=== PATIENT | male | born 1935 | race Caucasian/White ===

== ENCOUNTER 2018-04-11 18:25 | Emergency (ER) | payer MEDICARE, OTHER ==
[2018-04-11 19:14] LABS: Basophils % (A) 1 %; Eosinophils # (A) 0.1 k/uL (0-0.7); Eosinophils % (A) 1 %; HCT 40.5 % (39.0-53.0); HGB 13.6 gm/dL (13.0-17.5); Lymphocytes # (A) 1.5 k/uL (1.0-4.8); Lymphocytes % (A) 16 %; MCH 30.5 pg (25.0-35.0); MCHC 33.5 g/dL (31.0-37.0); MCV 90.9 fL (80.0-100.0); Mean Platelet Volume 7.3; Monocytes # (A) 0.6 k/uL (0-1.0); Monocytes % (A) 7 %; Neutrophils # (A) 6.9 k/uL (1.3-7.7); Neutrophils % (A) 74 %; Platelet Count 276 k/uL (150-450); RBC 4.46 m/uL (4.30-5.90); RDW 12.6 % (11.5-15.5); WBC 9.3 k/uL (3.8-10.6)
[2018-04-11 19:28] LABS: Albumin 4.4 g/dL (3.5-5.0); Calcium 9.4 mg/dL (8.4-10.2); Potassium 4.3 mmol/L (3.5-5.1); Total Bilirubin 0.7 mg/dL (0.2-1.3); Total Protein 7.1 g/dL (6.3-8.2)
[2018-04-11 19:33] LABS: Prothrombin Time 10.1 sec (9.0-12.0)
[2018-04-11 19:33] LABS: Appearance,Urine Clear (Clear); Bilirubin,Urine Negative (Negative); Blood,Urine Negative (Negative); Color,Urine Yellow; Glucose,Urine (UA) Negative (Negative); Ketones,Urine Negative (Negative); Leukocyte Esterase,Urine Negative (Negative); Nitrite,Urine Negative (Negative); PH, Urine 6.5 (5.0-8.0); Protein,Urine Negative (Negative); Specific Gravity,Urine 1.016 (1.001-1.035)
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
[2018-04-11 19:53] LABS: Creatine Kinase 105 U/L (55-170)
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
[2018-04-11 20:07] LABS: Troponin I <0.012 ng/mL (0.000-0.034)
[2018-04-11 20:12] LABS: Creatine Kinase MB 2.7 ng/mL (0.0-2.4)
[2018-04-11 20:33] VITALS: BP 150/67; PULSE 72; RESP 18; TEMP 97.1
== END 2018-04-11 20:58 | disposition home or self-care (01) ==
LOC: EC 18:25
DX: S50.11XA Contusion of right forearm, initial encounter (principal); R07.89 Other chest pain; E78.5 Hyperlipidemia, unspecified; I10 Essential (primary) hypertension; Z95.5 Presence of coronary angioplasty implant and graft; Z79.82 Long term (current) use of aspirin; Z79.899 Other long term (current) drug therapy; V43.52XA Car driver injured in collision with other type car in traffic accident, initial encounter; Y92.411 Interstate highway as the place of occurrence of the external cause
CPT/HCPCS: 36415; 71046; 72170; 80053; 81003; 82550; 82553; 84484; 85025; 85610; 85730; 86850; 86900; 86901; 93005; 99284

== ENCOUNTER → 2018-04-24 | Outpatient (CLI) | payer MEDICARE, OTHER ==
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
== END | disposition home or self-care (01) ==
LOC: RADCTMAIN 18:39
PROVIDERS: ATTEND Family Medicine
DX: S20.211A Contusion of right front wall of thorax, initial encounter (principal)
CPT/HCPCS: 71250

== ENCOUNTER 2018-07-31 20:27 | Emergency (ER) | payer MEDICARE, OTHER ==
[2018-07-31] MEDS ORDERED: SODIUM CHLORIDE 0.9% 1,000 ML IV STA (21:03)
[2018-07-31] MEDS ORDERED: FAMOTIDINE 20 MG/2 ML VIAL IV STA (21:04)
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
--- NOTE | 2018-07-31 21:46 | XR ---
EXAMINATION TYPE: XR KUB DATE OF EXAM: 07/31/2018 COMPARISON: NONE HISTORY: Nausea TECHNIQUE: 2 views FINDINGS: There is no sign of intestinal obstruction or pneumoperitoneum. Fecal pattern is normal. Sera ng bases are clear. There are no pathologic calcifications over the kidneys. IMPRESSION: Nonacute abdomen.
[2018-07-31 22:01] LABS: Appearance,Urine Clear (Clear); Bilirubin,Urine Negative (Negative); Blood,Urine Negative (Negative); Color,Urine Colorless; Glucose,Urine (UA) Negative (Negative); Ketones,Urine Negative (Negative); Leukocyte Esterase,Urine Negative (Negative); Nitrite,Urine Negative (Negative); Protein,Urine Negative (Negative); Specific Gravity,Urine 1.005 (1.001-1.035); Urobilinogen,Urine <2.0 mg/dL (<2.0)
[2018-07-31 22:03] LABS: Basophils % (A) 0 %; Eosinophils # (A) 0.1 k/uL (0-0.7); Eosinophils % (A) 1 %; HCT 39.3 % (39.0-53.0); HGB 13.5 gm/dL (13.0-17.5); Lymphocytes # (A) 1.3 k/uL (1.0-4.8); Lymphocytes % (A) 26 %; MCH 31.7 pg (25.0-35.0); MCHC 34.3 g/dL (31.0-37.0); MCV 92.3 fL (80.0-100.0); Mean Platelet Volume 7.6; Monocytes # (A) 0.5 k/uL (0-1.0); Monocytes % (A) 10 %; Neutrophils # (A) 2.9 k/uL (1.3-7.7); Neutrophils % (A) 59 %; Platelet Count 219 k/uL (150-450); RBC 4.26 m/uL (4.30-5.90); RDW 12.4 % (11.5-15.5)
[2018-07-31 22:12] LABS: ALT 21 U/L (21-72); AST 24 U/L (17-59); Albumin 3.7 g/dL (3.5-5.0); Alkaline Phosphatase 51 U/L (38-126); Amylase 57 U/L (30-110); Anion Gap 8 mmol/L; Blood Urea Nitrogen 12 mg/dL (9-20); Calcium 9.1 mg/dL (8.4-10.2); Carbon Dioxide 29 mmol/L (22-30); Chloride 98 mmol/L (98-107); Glucose 91 mg/dL (74-99); Lipase 143 U/L (23-300); Potassium 4.4 mmol/L (3.5-5.1); Sodium 135 mmol/L (137-145); Total Bilirubin 0.7 mg/dL (0.2-1.3); Total Protein 6.7 g/dL (6.3-8.2)
[2018-07-31 22:18] LABS: INR 1.1 (<1.2); Prothrombin Time 10.3 sec (9.0-12.0)
[2018-07-31 22:30] LABS: Creatine Kinase MB 2.2 ng/mL (0.0-2.4); Troponin I <0.012 ng/mL (0.000-0.034)
[2018-07-31 22:43] LABS: Creatine Kinase 73 U/L (55-170)
[2018-08-01 00:15] VITALS: BP 149/65; PULSE 74; RESP 18; TEMP 98.3
== END 2018-07-31 23:57 | disposition home or self-care (01) ==
LOC: EC 20:27
DX: R10.13 Epigastric pain (principal); R11.2 Nausea with vomiting, unspecified; R19.7 Diarrhea, unspecified; E78.5 Hyperlipidemia, unspecified; I10 Essential (primary) hypertension; Z95.5 Presence of coronary angioplasty implant and graft; Z79.82 Long term (current) use of aspirin; Z79.899 Other long term (current) drug therapy; Z98.890 Other specified postprocedural states
CPT/HCPCS: 36415; 71046; 74018; 80053; 81003; 82150; 82550; 82553; 83690; 84484; 85025; 85610; 85730; 93005; 96361; 96374; 99284

== ENCOUNTER 2019-03-25 01:30 | Emergency (ER) | payer MEDICARE ==
[2019-03-25 01:45] VITALS: TEMP 98.1
[2019-03-25] MEDS ORDERED: SODIUM CHLORIDE 0.9% 500 ML 500 ML IV STA (02:01)
--- NOTE | 2019-03-25 02:42 | XR ---
EXAM: XR Chest, 2 Views CLINICAL HISTORY: ITS.REASON XR Reason: Dizziness; Chest pain TECHNIQUE: Frontal and lateral views of the chest. COMPARISON: No relevant prior studies available. FINDINGS: Lungs: Unremarkable. No consolidation. Pleural space: Unremarkable. No pneumothorax. Heart: No suspicious enlargement. Mediastinum: Unremarkable. Bones/joints: No acute fracture. IMPRESSION: No acute findings.
--- NOTE | 2019-03-25 02:42 | XR ---
EXAM: XR Abdomen, 1 View CLINICAL HISTORY: ITS.REASON XR Reason: Pain TECHNIQUE: Frontal supine view of the abdomen/pelvis. COMPARISON: No relevant prior studies available. FINDINGS: Gastrointestinal tract: Unremarkable. No dilation. Bones/joints: Unremarkable. IMPRESSION: Normal abdominal x-ray.
[2019-03-25 02:51] LABS: Basophils % (A) 0 %; Eosinophils # (A) 0.1 k/uL (0-0.7); Eosinophils % (A) 1 %; HCT 38.9 % (39.0-53.0); Lymphocytes # (A) 1.2 k/uL (1.0-4.8); Lymphocytes % (A) 19 %; MCH 30.4 pg (25.0-35.0); MCHC 33.5 g/dL (31.0-37.0); MCV 90.7 fL (80.0-100.0); Monocytes # (A) 0.5 k/uL (0-1.0); Monocytes % (A) 8 %; Neutrophils # (A) 4.1 k/uL (1.3-7.7); Neutrophils % (A) 69 %; Platelet Count 215 k/uL (150-450); RBC 4.29 m/uL (4.30-5.90)
[2019-03-25 03:08] LABS: Appearance,Urine Clear (Clear); Bilirubin,Urine Negative (Negative); Blood,Urine Trace (Negative); Color,Urine Light Yellow; Glucose,Urine (UA) Negative (Negative); Ketones,Urine Negative (Negative); Leukocyte Esterase,Urine Negative (Negative); Mucus,Urine Rare /hpf; Nitrite,Urine Negative (Negative); Protein,Urine Negative (Negative); RBC,Urine 3 /hpf (0-5); Specific Gravity,Urine 1.009 (1.001-1.035); Urobilinogen,Urine <2.0 mg/dL (<2.0)
[2019-03-25 03:14] LABS: ALT 13 U/L (21-72); AST 25 U/L (17-59); Albumin 4.1 g/dL (3.5-5.0); Alkaline Phosphatase 55 U/L (38-126); Amylase 50 U/L (30-110); Anion Gap 9 mmol/L; Blood Urea Nitrogen 12 mg/dL (9-20); Calcium 9.2 mg/dL (8.4-10.2); Carbon Dioxide 25 mmol/L (22-30); Chloride 98 mmol/L (98-107); Glucose 102 mg/dL (74-99); Lipase 94 U/L (23-300); Sodium 132 mmol/L (137-145); Total Protein 7.1 g/dL (6.3-8.2)
[2019-03-25 03:28] LABS: Potassium 4.2 mmol/L (3.5-5.1)
[2019-03-25 03:44] VITALS: BP 134/80; PULSE 57; RESP 11
--- NOTE | 2019-03-25 03:59 | ED ---
General Adult HPI - General Source: EMS Mode of arrival: EMS Limitations: no limitations <Alondra Ken - Last Filed: 03/25/19 04:04> <Sadia Robison - Last Filed: 03/25/19 22:20> - General Chief complaint: Dizziness Stated complaint: dizziness - History of Present Illness Initial comments: 83-year-old male patient presents to the emergency department today for evaluation of dizziness and abdominal bloating. Patient states he started around noon with abdominal bloating. Patient states he thought he was constipated so he did take a laxative and had a small bowel movement. Patient states he thought he was constipated so he drank some prune juice and had another bowel movement. Patient states he did not change his symptoms. Patient denies any nausea or vomiting. Patient states that he felt his blood pressure was rising and he felt some mild dizziness. Patient states is worsened when he stood up. Patient denies any headache or blurred vision. Denies any numbness, tingling, weakness to his extremities. Patient states he is eating well throughout the day. Denies any fever or chills. Patient denies any recent rash, shortness breath, chest pain, back pain, numbness, tingling, dizziness, weakness, hematuria, dysuria, urinary urgency, urinary frequency, or any other complaints. (Alondra Ken) - Related Data Home Medications Medication Instructions Recorded Confirmed Aspirin 81 mg PO DAILY 03/27/15 04/11/18 Famotidine [Pepcid] 20 mg PO BID 03/27/15 04/11/18 Potassium Chloride [K-Tab ER] 20 meq PO DAILY 03/27/15 04/11/18 Simvastatin [Zocor] 40 mg PO HS 03/27/15 04/11/18 diphenhydrAMINE [Benadryl] 50 mg PO DAILY 03/27/15 04/11/18 Losartan Potassium [Cozaar] 25 mg PO DAILY 04/11/18 04/11/18 Metoprolol Tartrate [Lopressor] 25 mg PO BID 04/11/18 04/11/18 Allergies Allergy/AdvReac Type Severity Reaction Status Date / Time No Known Allergies Allergy Verified 03/25/19 01:39 Review of Systems ROS Other: All systems not noted in ROS Statement are negative. <Alondra Ken - Last Filed: 03/25/19 04:04> ROS Other: All systems not noted in ROS Statement are negative. <Sadia Robison P - Last Filed: 03/25/19 22:20> ROS Statement: Those systems with pertinent positive or pertinent negative responses have been documented in the HPI. Past Medical History Past Medical History: Hyperlipidemia, Hypertension Additional Past Medical History / Comment(s): Broken sternum April 11, 2018 History of Any Multi-Drug Resistant Organisms: None Reported Past Surgical History: Heart Catheterization With Stent, Hernia Repair Past Psychological History: No Psychological Hx Reported Smoking Status: Never smoker Past Alcohol Use History: None Reported Past Drug Use History: None Reported <Alondra Ken M - Last Filed: 03/25/19 04:04> General Exam Limitations: no limitations General appearance: alert, in no apparent distress, other (Physical well- developed, well-nourished elderly male patient in no acute distress. Vital signs upon presentation are temperature 98.1F, pulse 72, respirations 20, blood pressure 161/86, pulse ox 99% on room air.) Eye exam: Present: normal appearance, PERRL, EOMI. Absent: scleral icterus, conjunctival injection, periorbital swelling ENT exam: Present: normal exam, normal oropharynx, mucous membranes moist Respiratory exam: Present: normal lung sounds bilaterally. Absent: respiratory distress, wheezes, rales, rhonchi, stridor Cardiovascular Exam: Present: regular rate, normal rhythm, normal heart sounds. Absent: systolic murmur, diastolic murmur, rubs, gallop, clicks GI/Abdominal exam: Present: soft, normal bowel sounds. Absent: distended, tenderness, guarding, rebound, rigid Neurological exam: Present: alert, oriented X3, CN II-XII intact, other (Strength in all 4 extremities is 5/5.) Psychiatric exam: Present: normal affect, normal mood Skin exam: Present: warm, dry, intact, normal color. Absent: rash <Alondra Ken M - Last Filed: 03/25/19 04:04> Course Vital Signs 03/25/19 03/25/19 03/25/19 01:39 01:43 01:50 Temperature 98.1 F Pulse Rate 72 Respiratory 20 Rate Blood Pressure 161/86 161/86 O2 Sat by Pulse 99 96 Oximetry 03/25/19 03/25/19 03/25/19 02:00 02:20 02:30 Temperature Pulse Rate 68 Respiratory 13 Rate Blood Pressure 161/86 166/82 166/82 O2 Sat by Pulse 98 Oximetry 03/25/19 03/25/19 03/25/19 02:40 02:50 03:00 Temperature Pulse Rate 64 Respiratory 35 H Rate Blood Pressure 166/82 166/82 166/82 O2 Sat by Pulse 97 Oximetry 03/25/19 03/25/19 03/25/19 03:10 03:20 03:30 Temperature Pulse Rate 62 64 57 L Respiratory 12 24 11 L Rate Blood Pressure 155/77 155/77 155/77 O2 Sat by Pulse 97 97 Oximetry 03/25/19 03:40 Temperature Pulse Rate Respiratory Rate Blood Pressure 134/80 O2 Sat by Pulse Oximetry EKG Findings - EKG Comments: EKG Findings:: EKG obtained at 0222 shows sinus bradycardia with a ventricular rate of 59, WV interval 166, QRS duration 94, QT 428, QTC 423. No evidence of ST elevation or depression. <Alondra Ken - Last Filed: 03/25/19 04:04> Medical Decision Making - Lab Data Result diagrams: 03/25/19 02:10 03/25/19 02:10 - Radiology Data Radiology results: report reviewed, image reviewed <Alondra Ken - Last Filed: 03/25/19 04:04> - Lab Data Result diagrams: 03/25/19 02:10 03/25/19 02:10 <Sadia Robison - Last Filed: 03/25/19 22:20> - Medical Decision Making 83-year-old male patient presents to the emergency department today for evaluation of abdominal bloating and dizziness. Physical examination did reveal a soft nontender abdomen. He is neurologically intact with no focal deficits. EKG shows sinus bradycardia with no ST elevation or depression. Rates in the emergency department between 59 and 69 bpm. Labs reviewed and were unremarkable. Troponin negative. Chest x-ray showed no acute cardio pulmonary process. Abdominal x-ray is unremarkable. Upon reevaluation patient states symptoms have resolved. He does feel comfortable being discharged home at this time. He is instructed to follow-up with his primary care physician for recheck in 1-2 days. Return parameters were discussed in detail. He verbalizes understanding and agrees with this plan. (Alondra Ken) I was available for consultation in the emergency department. The history and physical exam were done by the midlevel provider. I was consulted for this patient's care. I reviewed the case with the midlevel provider and based on their presentation of the patient, I agree with the assessment, medical decision making and plan of care as documented. Chart was dictated using [employer] dictation software. Attempts were made to correct any dictation errors however some typographical errors may persist. (Sadia Robison) - Lab Data Lab Results 03/25/19 03/25/19 03/25/19 Range/Units 02:10 02:10 02:10 WBC 6.0 (3.8-10.6) k/uL RBC 4.29 L (4.30-5.90) m/uL Hgb 13.0 (13.0-17.5) gm/dL Hct 38.9 L (39.0-53.0) % MCV 90.7 (80.0-100.0) fL MCH 30.4 (25.0-35.0) pg MCHC 33.5 (31.0-37.0) g/dL RDW 13.0 (11.5-15.5) % Plt Count 215 (150-450) k/uL Neutrophils % 69 % Lymphocytes % 19 % Monocytes % 8 % Eosinophils % 1 % Basophils % 0 % Neutrophils # 4.1 (1.3-7.7) k/uL Lymphocytes # 1.2 (1.0-4.8) k/uL Monocytes # 0.5 (0-1.0) k/uL Eosinophils # 0.1 (0-0.7) k/uL Basophils # 0.0 (0-0.2) k/uL PT 11.0 (9.0-12.0) sec INR 1.0 (<1.2) Sodium 132 L (137-145) mmol/L Potassium 4.2 (3.5-5.1) mmol/L Chloride 98 (98-107) mmol/L Carbon Dioxide 25 (22-30) mmol/L Anion Gap 9 mmol/L BUN 12 (9-20) mg/dL Creatinine 0.72 (0.66-1.25) mg/dL Est GFR (CKD-EPI)AfAm >90 (>60 ml/min/1.73 sqM) Est GFR (CKD-EPI)NonAf 86 (>60 ml/min/1.73 sqM) Glucose 102 H (74-99) mg/dL Calcium 9.2 (8.4-10.2) mg/dL Total Bilirubin 1.0 (0.2-1.3) mg/dL AST 25 (17-59) U/L ALT 13 L (21-72) U/L Alkaline Phosphatase 55 (38-126) U/L Troponin I (0.000-0.034) ng/mL Total Protein 7.1 (6.3-8.2) g/dL Albumin 4.1 (3.5-5.0) g/dL Amylase 50 (30-110) U/L Lipase 94 (23-300) U/L Urine Color Urine Appearance (Clear) Urine pH (5.0-8.0) Ur Specific [place] (1.001-1.035) Urine Protein (Negative) Urine Glucose (UA) (Negative) Urine Ketones (Negative) Urine Blood (Negative) Urine Nitrite (Negative) Urine Bilirubin (Negative) Urine Urobilinogen (<2.0) mg/dL Ur Leukocyte Esterase (Negative) Urine RBC (0-5) /hpf Urine Mucus (None) /hpf 03/25/19 03/25/19 Range/Units 02:10 02:10 WBC (3.8-10.6) k/uL RBC (4.30-5.90) m/uL Hgb (13.0-17.5) gm/dL Hct (39.0-53.0) % MCV (80.0-100.0) fL MCH (25.0-35.0) pg MCHC (31.0-37.0) g/dL RDW (11.5-15.5) % Plt Count (150-450) k/uL Neutrophils % % Lymphocytes % % Monocytes % % Eosinophils % % Basophils % % Neutrophils # (1.3-7.7) k/uL Lymphocytes # (1.0-4.8) k/uL Monocytes # (0-1.0) k/uL Eosinophils # (0-0.7) k/uL Basophils # (0-0.2) k/uL PT (9.0-12.0) sec INR (<1.2) Sodium (137-145) mmol/L Potassium (3.5-5.1) mmol/L Chloride (98-107) mmol/L Carbon Dioxide (22-30) mmol/L Anion Gap mmol/L BUN (9-20) mg/dL Creatinine (0.66-1.25) mg/dL Est GFR (CKD-EPI)AfAm (>60 ml/min/1.73 sqM) Est GFR (CKD-EPI)NonAf (>60 ml/min/1.73 sqM) Glucose (74-99) mg/dL Calcium (8.4-10.2) mg/dL Total Bilirubin (0.2-1.3) mg/dL AST (17-59) U/L ALT (21-72) U/L Alkaline Phosphatase (38-126) U/L Troponin I <0.012 (0.000-0.034) ng/mL Total Protein (6.3-8.2) g/dL Albumin (3.5-5.0) g/dL Amylase (30-110) U/L Lipase (23-300) U/L Urine Color Light Yellow Urine Appearance Clear (Clear) Urine pH 7.0 (5.0-8.0) Ur Specific [place] 1.009 (1.001-1.035) Urine Protein Negative (Negative) Urine Glucose (UA) Negative (Negative) Urine Ketones Negative (Negative) Urine Blood Trace H (Negative) Urine Nitrite Negative (Negative) Urine Bilirubin Negative (Negative) Urine Urobilinogen <2.0 (<2.0) mg/dL Ur Leukocyte Esterase Negative (Negative) Urine RBC 3 (0-5) /hpf Urine Mucus Rare H (None) /hpf - Radiology Data One view x-ray of the abdomen is obtained. Report was reviewed in its entirety. Impression by Dr. Dennis shows normal abdominal x-ray. Two-view x-ray of the chest is obtained. Report reviewed in its entirety. Impression by Dr. Dennis shows no acute findings. (Alondra Ken) Disposition Is patient prescribed a controlled substance at d/c from ED?: No Time of Disposition: 03:59 <Alondra Ken - Last Filed: 03/25/19 04:04> <Sadia Robison - Last Filed: 03/25/19 22:20> Clinical Impression: Dizziness, Abdominal distention Disposition: HOME SELF-CARE Condition: Good Instructions (If sedation given, give patient instructions): Gas and Bloating (ED), Dizziness (ED) Additional Instructions: Follow-up with her primary care physician for recheck this week. Return to the emergency department immediately for any new, worsening, or concerning symptoms. Referrals: Arleen Estevez DO [Primary Care Provider] - 1-2 days
== END 2019-03-25 04:10 | disposition home or self-care (01) ==
LOC: EC 01:30
DX: R42 Dizziness and giddiness (principal); R14.0 Abdominal distension (gaseous); R00.1 Bradycardia, unspecified; E78.5 Hyperlipidemia, unspecified; I10 Essential (primary) hypertension; Z95.5 Presence of coronary angioplasty implant and graft; Z79.82 Long term (current) use of aspirin; Z79.899 Other long term (current) drug therapy
CPT/HCPCS: 36415; 71046; 74018; 80053; 81001; 82150; 83690; 84484; 85025; 85610; 93005; 96360; 99285

== ENCOUNTER 2019-04-27 19:33 | Emergency (ER) | payer MEDICARE ==
[2019-04-27] MEDS ORDERED: SODIUM CHLORIDE 0.9% 500 ML 500 ML IV STA (20:03)
[2019-04-27 20:34] VITALS: RESP 18
[2019-04-27 20:45] LABS: Basophils % (A) 1 %; Eosinophils # (A) 0.1 k/uL (0-0.7); Eosinophils % (A) 1 %; HGB 13.5 gm/dL (13.0-17.5); Lymphocytes # (A) 1.1 k/uL (1.0-4.8); Lymphocytes % (A) 20 %; MCH 30.3 pg (25.0-35.0); MCHC 33.8 g/dL (31.0-37.0); MCV 89.7 fL (80.0-100.0); Mean Platelet Volume 7.2; Monocytes # (A) 0.3 k/uL (0-1.0); Monocytes % (A) 6 %; Neutrophils # (A) 3.8 k/uL (1.3-7.7); Neutrophils % (A) 69 %; Platelet Count 255 k/uL (150-450); RBC 4.46 m/uL (4.30-5.90); RDW 12.2 % (11.5-15.5); WBC 5.6 k/uL (3.8-10.6)
[2019-04-27 20:53] LABS: Partial Thromboplastin Time 27.2 sec (22.0-30.0); Prothrombin Time 10.3 sec (9.0-12.0)
[2019-04-27 20:54] LABS: ALT 20 U/L (21-72); AST 22 U/L (17-59); African American GFR (CKD) >90 (>60 ml/min/1.73 sqM); Albumin 4.2 g/dL (3.5-5.0); Alkaline Phosphatase 73 U/L (38-126); Amylase 55 U/L (30-110); Anion Gap 11 mmol/L; Blood Urea Nitrogen 10 mg/dL (9-20); Calcium 9.6 mg/dL (8.4-10.2); Carbon Dioxide 25 mmol/L (22-30); Chloride 94 mmol/L (98-107); Glucose 109 mg/dL (74-99); Lipase 85 U/L (23-300); Potassium 4.5 mmol/L (3.5-5.1); Sodium 130 mmol/L (137-145); Total Bilirubin 0.8 mg/dL (0.2-1.3); Total Protein 7.2 g/dL (6.3-8.2)
--- NOTE | 2019-04-27 21:23 | CT ---
EXAMINATION TYPE: CT abdomen pelvis w con DATE OF EXAM: 04/27/2019 COMPARISON: None HISTORY: Abdominal pain. CT DLP: 860.4 mGycm Automated exposure control for dose reduction was used. TECHNIQUE: Helical acquisition of images was performed from the lung bases through the pelvis. CONTRAST: Performed without Oral Contrast and with IV Contrast, patient injected with 100ml mL of Isovue 300. FINDINGS: Lung bases are clear of consolidation. There is no pleural effusion. Heart size is normal. There are small hiatal hernia. Liver shows no focal defect. Gallbladder appears normal. Spleen appear s normal. There is no pancreatic mass. There is no adrenal mass. Kidneys show satisfactory contrast opacification. There is no hydronephrosi s. Abdominal aorta is atheromatous. There is no retroperitoneal adenopathy. There are numerous divert icula in the sigmoid colon. There are numerous diverticula in the remainder of the colon. Bladder dis tends smoothly. There is no free fluid in the pelvis. There is right inguinal hernia that appears to contain fluid. There is no free fluid in the pelvis. There is no definite mesenteric edema. There are multiple small mesenteric lymph nodes. These measure up to 8 mm. There is no ascites or free air. The appendix appe ars normal. 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 There i s moderate L5-S1 disc space narrowing. There is no lumbar compression fracture. Bony pelvis is intact . IMPRESSION: HIATAL HERNIA. ATHEROSCLEROTIC VASCULAR DISEASE. NORMAL APPENDIX. MODERATE COLONIC DIVERTICULOSIS WITHOUT DIVERTICULITIS. There is some small bowel mesenteric lymphadenopathy of uncertain significance.
--- NOTE | 2019-04-27 21:47 | ED ---
Abdominal Pain HPI - General Source: patient Mode of arrival: ambulatory Limitations: no limitations <Alondra Ken - Last Filed: 04/27/19 23:37> <Sadia Robison - Last Filed: 04/28/19 03:15> - General Chief Complaint: Abdominal Pain Stated Complaint: Abd pain Time Seen by Provider: 04/27/19 19:47 - History of Present Illness Initial Comments: 83-year-old male patient presents to the emergency department today for evaluation of upper abdominal discomfort and bloating. The patient states this started this morning and has worsened throughout the day. Patient states that he is following his usual diet with no new foods. States he has been having increase in acid reflux symptoms. He does take Pepcid twice daily. Denies any radiation of the pain through to his back. Denies any fever or chills with this. Patient states he was feeling a little "woozy". States he felt like his blood pressure was elevated. Denies any chest pain or shortness of breath. Denies any weakness, numbness, or tingling to his extremities. Denies any headache, blurred vision, double vision. Patient denies any recent rash, fever, chills, nausea, vomiting, diarrhea, constipation, back pain, hematuria, dysuria, urinary urgency, urinary frequency, or any other complaints. (Alondra Ken) - Related Data Home Medications Medication Instructions Recorded Confirmed Aspirin 81 mg PO DAILY 03/27/15 04/27/19 Famotidine [Pepcid] 20 mg PO BID 03/27/15 04/27/19 Simvastatin [Zocor] 40 mg PO HS 03/27/15 04/27/19 diphenhydrAMINE [Benadryl] 50 mg PO DAILY 03/27/15 04/27/19 Losartan Potassium [Cozaar] 25 mg PO DAILY 04/11/18 04/27/19 Metoprolol Tartrate [Lopressor] 25 mg PO BID 04/11/18 04/27/19 Previous Rx's Medication Instructions Recorded Ranitidine HCl [Zantac] 150 mg PO HS #30 tab 04/27/19 Allergies Allergy/AdvReac Type Severity Reaction Status Date / Time No Known Allergies Allergy Verified 04/27/19 20:20 Review of Systems ROS Other: All systems not noted in ROS Statement are negative. <Alondra Ken - Last Filed: 04/27/19 23:37> ROS Other: All systems not noted in ROS Statement are negative. <RobisonSadia P - Last Filed: 04/28/19 03:15> ROS Statement: Those systems with pertinent positive or pertinent negative responses have been documented in the HPI. Past Medical History Past Medical History: Hyperlipidemia, Hypertension Additional Past Medical History / Comment(s): Broken sternum April 11, 2018 History of Any Multi-Drug Resistant Organisms: None Reported Past Surgical History: Heart Catheterization With Stent, Hernia Repair Past Psychological History: No Psychological Hx Reported Smoking Status: Never smoker Past Alcohol Use History: None Reported Past Drug Use History: None Reported <Alondra Ken M - Last Filed: 04/27/19 23:37> General Exam Limitations: no limitations General appearance: alert, in no apparent distress, other (Physical well- developed, well-nourished elderly male patient in no acute distress. Vital signs upon presentation are temperature 97.6F, pulse 66, respirations 20, blood pressure 149/83, pulse ox 96% on room air.) Eye exam: Present: normal appearance, PERRL, EOMI. Absent: scleral icterus, conjunctival injection, periorbital swelling ENT exam: Present: normal exam, normal oropharynx, mucous membranes moist Respiratory exam: Present: normal lung sounds bilaterally. Absent: respiratory distress, wheezes, rales, rhonchi, stridor Cardiovascular Exam: Present: regular rate, normal rhythm, normal heart sounds. Absent: systolic murmur, diastolic murmur, rubs, gallop, clicks GI/Abdominal exam: Present: soft, tenderness (Mild midepigastric), normal bowel sounds. Absent: distended, guarding, rebound, rigid Neurological exam: Present: alert, oriented X3, CN II-XII intact Psychiatric exam: Present: normal affect, normal mood Skin exam: Present: warm, dry, intact, normal color. Absent: rash <Alondra Ken M - Last Filed: 04/27/19 23:37> Course Vital Signs 04/27/19 04/27/19 04/27/19 19:41 20:32 20:52 Temperature 97.6 F Pulse Rate 66 63 60 Respiratory 20 18 18 Rate Blood Pressure 149/83 176/96 159/84 O2 Sat by Pulse 96 96 96 Oximetry 06/23/19 06/23/19 06/23/19 21:56 23:06 23:41 Temperature 98 F 98 F 98 F Pulse Rate 64 64 67 Respiratory 18 18 18 Rate Blood Pressure 143/75 145/88 136/80 O2 Sat by Pulse 98 98 Oximetry Medical Decision Making - Lab Data Result diagrams: 04/27/19 20:32 04/27/19 20:32 - EKG Data -: EKG Interpreted by Me - Radiology Data Radiology results: report reviewed, image reviewed <Alondra Ken - Last Filed: 04/27/19 23:37> - Lab Data Result diagrams: 04/27/19 20:32 04/27/19 20:32 <Sadia Robison - Last Filed: 04/28/19 03:15> - Medical Decision Making 83-year-old male patient presents the emergency department today for evaluation of upper abdominal bloating and discomfort. Patient is also reporting feeling "woozy". Denies any room spinning or near-syncope. Physical examination reveals some midepigastric tenderness. He is neurologically intact with no focal deficits. Labs reviewed and did reveal decreased sodium at 130. Remainder of labs are unremarkable. No urinary tract infection. CT abdomen and pelvis was obtained and did show evidence of lymphadenopathy surrounding the small bowel and colonic diverticulosis. Patient was given a GI cocktail. Upon reevaluation states that symptoms are improved. He will be discharged home at this time to follow-up with his primary care physician for recheck as soon as possible. He'll be switched from Pepcid to Zantac. He is instructed to discuss referral for upper GI endoscopy. Return parameters were discussed in detail. He verbalizes understanding and agrees this plan. (Alondra Ken) I was available for consultation in the emergency department. The history and physical exam were done by the midlevel provider. I was consulted for this patient's care. I reviewed the case with the midlevel provider and based on the ir presentation of the patient, I agree with the assessment, medical decision making and plan of care as documented. Chart was dictated using [employer] dictation software. Attempts were made to correct any dictation errors however some typographical errors may persist. (Sadia Robison) - Lab Data Lab Results 04/27/19 04/27/19 04/27/19 Range/Units 20:32 20:32 20:32 WBC 5.6 (3.8-10.6) k/uL RBC 4.46 (4.30-5.90) m/uL Hgb 13.5 (13.0-17.5) gm/dL Hct 40.0 (39.0-53.0) % MCV 89.7 (80.0-100.0) fL MCH 30.3 (25.0-35.0) pg MCHC 33.8 (31.0-37.0) g/dL RDW 12.2 (11.5-15.5) % Plt Count 255 (150-450) k/uL Neutrophils % 69 % Lymphocytes % 20 % Monocytes % 6 % Eosinophils % 1 % Basophils % 1 % Neutrophils # 3.8 (1.3-7.7) k/uL Lymphocytes # 1.1 (1.0-4.8) k/uL Monocytes # 0.3 (0-1.0) k/uL Eosinophils # 0.1 (0-0.7) k/uL Basophils # 0.0 (0-0.2) k/uL PT (9.0-12.0) sec INR (<1.2) APTT (22.0-30.0) sec Sodium 130 L (137-145) mmol/L Potassium 4.5 (3.5-5.1) mmol/L Chloride 94 L (98-107) mmol/L Carbon Dioxide 25 (22-30) mmol/L Anion Gap 11 mmol/L BUN 10 (9-20) mg/dL Creatinine 0.79 (0.66-1.25) mg/dL Est GFR (CKD-EPI)AfAm >90 (>60 ml/min/1.73 sqM) Est GFR (CKD-EPI)NonAf 83 (>60 ml/min/1.73 sqM) Glucose 109 H (74-99) mg/dL Plasma Lactic Acid Tee 1.1 (0.7-2.0) mmol/L Calcium 9.6 (8.4-10.2) mg/dL Total Bilirubin 0.8 (0.2-1.3) mg/dL AST 22 (17-59) U/L ALT 20 L (21-72) U/L Alkaline Phosphatase 73 (38-126) U/L Troponin I (0.000-0.034) ng/mL Total Protein 7.2 (6.3-8.2) g/dL Albumin 4.2 (3.5-5.0) g/dL Amylase 55 (30-110) U/L Lipase 85 (23-300) U/L Urine Color Urine Appearance (Clear) Urine pH (5.0-8.0) Ur Specific [place] (1.001-1.035) Urine Protein (Negative) Urine Glucose (UA) (Negative) Urine Ketones (Negative) Urine Blood (Negative) Urine Nitrite (Negative) Urine Bilirubin (Negative) Urine Urobilinogen (<2.0) mg/dL Ur Leukocyte Esterase (Negative) 04/27/19 04/27/19 04/27/19 Range/Units 20:32 20:32 21:30 WBC (3.8-10.6) k/uL RBC (4.30-5.90) m/uL Hgb (13.0-17.5) gm/dL Hct (39.0-53.0) % MCV (80.0-100.0) fL MCH (25.0-35.0) pg MCHC (31.0-37.0) g/dL RDW (11.5-15.5) % Plt Count (150-450) k/uL Neutrophils % % Lymphocytes % % Monocytes % % Eosinophils % % Basophils % % Neutrophils # (1.3-7.7) k/uL Lymphocytes # (1.0-4.8) k/uL Monocytes # (0-1.0) k/uL Eosinophils # (0-0.7) k/uL Basophils # (0-0.2) k/uL PT 10.3 (9.0-12.0) sec INR 1.0 (<1.2) APTT 27.2 (22.0-30.0) sec Sodium (137-145) mmol/L Potassium (3.5-5.1) mmol/L Chloride (98-107) mmol/L Carbon Dioxide (22-30) mmol/L Anion Gap mmol/L BUN (9-20) mg/dL Creatinine (0.66-1.25) mg/dL Est GFR (CKD-EPI)AfAm (>60 ml/min/1.73 sqM) Est GFR (CKD-EPI)NonAf (>60 ml/min/1.73 sqM) Glucose (74-99) mg/dL Plasma Lactic Acid Tee (0.7-2.0) mmol/L Calcium (8.4-10.2) mg/dL Total Bilirubin (0.2-1.3) mg/dL AST (17-59) U/L ALT (21-72) U/L Alkaline Phosphatase (38-126) U/L Troponin I <0.012 (0.000-0.034) ng/mL Total Protein (6.3-8.2) g/dL Albumin (3.5-5.0) g/dL Amylase (30-110) U/L Lipase (23-300) U/L Urine Color Light Yellow Urine Appearance Clear (Clear) Urine pH 7.0 (5.0-8.0) Ur Specific [place] 1.017 (1.001-1.035) Urine Protein Negative (Negative) Urine Glucose (UA) Negative (Negative) Urine Ketones Negative (Negative) Urine Blood Negative (Negative) Urine Nitrite Negative (Negative) Urine Bilirubin Negative (Negative) Urine Urobilinogen <2.0 (<2.0) mg/dL Ur Leukocyte Esterase Negative (Negative) - EKG Data EKG Comments: EKG obtained at 2045 shows normal sinus rhythm with a ventricular rate of 62, NE interval 158, QRS duration 86, QT 434, QTC 440. No evidence of ST elevation or depression (Alondra Ken) - Radiology Data CT abdomen and pelvis was obtained with contrast. Report was reviewed in its entirety. Impression by Dr. Swan shows hiatal hernia. Atherosclerotic vascular disease. Normal appendix. Moderate colonic diverticulosis without diverticulitis. There is some small bowel mesenteric lymphadenopathy of uncertain significance. (Alondra Ken) Disposition Is patient prescribed a controlled substance at d/c from ED?: No Time of Disposition: 22:25 <Alondra Ken - Last Filed: 04/27/19 23:37> <Sadia Robison - Last Filed: 04/28/19 03:15> Clinical Impression: Abdominal distention, Hyponatremia Disposition: HOME SELF-CARE Condition: Good Instructions (If sedation given, give patient instructions): Hyponatremia (ED), Gas and Bloating (ED) Additional Instructions: Follow-up with your primary care physician for recheck as soon as possible. Inform him of your low sodium level. Return to the emergency department immediately for any new, worsening, or concerning symptoms. Prescriptions: Ranitidine HCl [Zantac] 150 mg PO HS #30 tab Referrals: Arleen Estevez DO [Primary Care Provider] - 1-2 days
[2019-04-27 21:48] LABS: Appearance,Urine Clear (Clear); Bilirubin,Urine Negative (Negative); Blood,Urine Negative (Negative); Color,Urine Light Yellow; Glucose,Urine (UA) Negative (Negative); Ketones,Urine Negative (Negative); Leukocyte Esterase,Urine Negative (Negative); Nitrite,Urine Negative (Negative); Protein,Urine Negative (Negative); Specific Gravity,Urine 1.017 (1.001-1.035); Urobilinogen,Urine <2.0 mg/dL (<2.0)
[2019-04-27 21:58] VITALS: TEMP 98
[2019-04-27] MEDS ORDERED: MAG HYDROX/AL HYDROX/SIMETH 30 ML, HYOSCYAMINE ELIXIR 10 ML, CIMETIDINE HCL 300 MG, LID... PO STA ×4 (22:36)
[2019-04-27 23:43] VITALS: BP 136/80; PULSE 67
== END 2019-04-27 23:50 | disposition home or self-care (01) ==
LOC: EC 19:33
DX: R14.0 Abdominal distension (gaseous) (principal); E87.1 Hypo-osmolality and hyponatremia; R10.13 Epigastric pain; K57.30 Diverticulosis of large intestine without perforation or abscess without bleeding; R59.0 Localized enlarged lymph nodes; E78.5 Hyperlipidemia, unspecified; I10 Essential (primary) hypertension; Z79.82 Long term (current) use of aspirin; Z79.899 Other long term (current) drug therapy; Z95.5 Presence of coronary angioplasty implant and graft
CPT/HCPCS: 36415; 93005; 80053; 82150; 83605; 83690; 84484; 85025; 85610; 85730; 81003; 74177; 99284; 96360; Q9967

== ENCOUNTER 2019-05-13 09:00 | Day surgery (SDC) | payer MEDICARE ==
[2019-05-12 10:14] VITALS: BMI 25.0
[~2019-05-13 09:00] MED LIST: LACTATED RINGERS 1,000 ML IV SCH
[2019-05-13 09:26] VITALS: TEMP 97
[2019-05-13] MEDS ORDERED: PROPOFOL 10 MG/ML 20 ML VIAL IV ONE (10:08)
--- NOTE | 2019-05-13 10:33 | P.PCN ---
Date of Procedure: 05/13/19 Description of Procedure: BRIEF HISTORY: Patient is a 83-year-old, pleasant, male patient who presents for evaluation of epigastric abdominal pain and dysphagia. The patient reports intermittent episodes of pain in the epigastric region which has been somewhat improved since starting omeprazole therapy 1 week ago. He also has intermittent episodes of food sticking. No prior EGD. PROCEDURE PERFORMED: Esophagogastroduodenoscopy with biopsy. PREOPERATIVE DIAGNOSIS: Esophageal dysphagia, epigastric pain. ESTIMATED BLOOD LOSS: Minimal. IV sedation per anesthesia. PROCEDURE: After informed consent was obtained, the patient was brought into the endoscopy unit. IV sedation was administered by Anesthesia under continuous monitoring. Initially the Olympus GIF-150 video endoscope was inserted into the mouth. Esophagus intubated without any difficulty. It was gradually advanced into the stomach and duodenum and carefully examined. The bulb and the second part of the duodenum appeared normal, with biopsies taken. The scope at this time was withdrawn to the stomach, adequately insufflated with air, and upon careful examination, mucosa of the antrum, body, cardia and the fundus appeared grossly normal except for some mild scattered erythema in the antrum and body suggestive of mild gastritis with biopsies taken. The scope was then withdrawn into the esophagus. The GE junction was located at 35 cm from the incisors. A 4 cm hiatal hernia. Widely patent distal esophageal Schatzki's ring. The esophagus appeared normal. There were no erosions or ulcerations seen and the patient tolerated the procedure well. IMPRESSION: 1. Mild gastritis antrum and body, biopsied. 2. Large hiatal hernia. 3. Widely patent Schatzki's ring. 4. Duodenal biopsies. RECOMMENDATIONS: The findings of this examination were discussed with the patient and his family. Would continue omeprazole 20 mg daily. Await pathology from biopsies. Okay to resume diet and medications.
[2019-05-13 11:08] VITALS: BP 129/71; PULSE 62; RESP 18
== END 2019-05-13 11:17 | disposition home or self-care (01) ==
LOC: ORWHC2ENDO 09:00
PROVIDERS: ATTEND Internal Medicine
DX: K44.9 Diaphragmatic hernia without obstruction or gangrene (principal); K22.2 Esophageal obstruction; K29.70 Gastritis, unspecified, without bleeding; R13.14 Dysphagia, pharyngoesophageal phase; Z95.5 Presence of coronary angioplasty implant and graft; E78.5 Hyperlipidemia, unspecified; Z79.82 Long term (current) use of aspirin; Z79.899 Other long term (current) drug therapy
CPT/HCPCS: 43239; J2704; C1726; 88305; 88342

== ENCOUNTER 2019-10-03 20:18 | Emergency (ER) | payer MEDICARE ==
[2019-10-03] MEDS ORDERED: ONDANSETRON 4 MG/2 ML VIAL IVP STA (20:50)
[2019-10-03] MEDS ORDERED: SODIUM CHLORIDE 0.9% 1,000 ML IV STA (20:50)
--- NOTE | 2019-10-03 20:55 | ED ---
General Adult HPI - General Chief complaint: Dizziness Stated complaint: Dizziness Time Seen by Provider: 10/03/19 20:27 Source: patient Mode of arrival: ambulatory Limitations: no limitations - History of Present Illness Initial comments: Dictation was produced using [employer] dictation software. please excuse any grammatical, word or spelling errors. Chief Complaint: 84-year-old male past medical history of vertigo, cardiac artery disease, presents with dizziness. History of Present Illness: 84-year-old male who presents with dizziness. Patient reports that he has history of vertigo. Today he actually ingested a cookie at the house. He found out recently that cookie was made with marijuana ingredients. Patient states that his episode of dizziness is different from symptoms ease experience in the past. Denies sensation of the room spinning. Patient has any nausea vomiting. He has no pain complaints at this time. Patient has never had marijuana in the past. The ROS documented in this emergency department record has been reviewed and confirmed by me. Those systems with pertinent positive or negative responses have been documented in the HPI. All other systems are other negative and/or noncontributory. PHYSICAL EXAM: General Impression: Alert and oriented x3, not in acute distress HEENT: Normocephalic atraumatic, extra-ocular movements intact, pupils equal and reactive to light bilaterally, mucous membranes moist. Cardiovascular: Heart regular rate and rhythm, S1&S2 audible, no murmurs, rubs or gallops Chest: Lungs clear to auscultation bilaterally, no rhonchi, no wheeze, no rales Abdomen: Bowel sounds present, abdomen soft, non-tender, non-distended, no organomegaly Musculoskeletal: Pulses present and equal in all extremities, no peripheral edema Motor: no focal deficits noted Neurological: CN II-XII grossly intact, no focal motor or sensory deficits noted Skin: Intact with no visualized rashes Psych: Normal affect and mood ED course: 84-year-old male presents with dizziness after ingestion of marijuana containing cookies. Vital signs upon arrival are within acceptable limits. EKGs benign. Basic labs were obtained. Showed no acute processes. No gap acidosis. Patient observed in the emergency department with stable medical condition. Patient feels well coca presentation likely secondary to marijuana intoxication. Patient be dispositioned to the care of his family member who can bring him home. Patient ambulatory without complications. Patient tolerate by mouth. Return parameters was discussed. All questions answered. Patient agreeable. EKG interpretation: Ventricular rate 72, normal sinus rhythm, SC interval 150, QS 90, QTC 464. No SC prolongation, no QTC prolongation, no ST or T-wave changes noted. . Overall, this EKG is unremarkable - Related Data Home Medications Medication Instructions Recorded Confirmed Aspirin 81 mg PO DAILY 03/27/15 05/13/19 Simvastatin [Zocor] 40 mg PO HS 03/27/15 05/13/19 diphenhydrAMINE [Benadryl] 50 mg PO DAILY PRN 03/27/15 05/13/19 Losartan Potassium [Cozaar] 25 mg PO DAILY 04/11/18 05/13/19 Metoprolol Tartrate [Lopressor] 25 mg PO BID 04/11/18 05/13/19 Nitroglycerin Sl Tabs [Nitrostat] 0.4 mg SUBLINGUAL Q5M PRN 05/12/19 05/13/19 Omeprazole [PriLOSEC] 20 mg PO AC-BRKFST 05/12/19 05/13/19 Allergies Allergy/AdvReac Type Severity Reaction Status Date / Time No Known Allergies Allergy Verified 10/03/19 20:28 Review of Systems ROS Statement: Those systems with pertinent positive or pertinent negative responses have been documented in the HPI. ROS Other: All systems not noted in ROS Statement are negative. Past Medical History Past Medical History: Cancer, GERD/Reflux, Hyperlipidemia, Hypertension, My ocardial Infarction ([place]) Additional Past Medical History / Comment(s): Broken sternum April 11, 2018, skin cancer melanoma Last Myocardial Infarction Date:: 2011 History of Any Multi-Drug Resistant Organisms: None Reported Past Surgical History: Heart Catheterization With Stent, Hernia Repair Additional Past Surgical History / Comment(s): hernia x4 Past Anesthesia/Blood Transfusion Reactions: No Reported Reaction Date of Last Stent Placement:: 2011 Past Psychological History: No Psychological Hx Reported Smoking Status: Never smoker - Past Family History Sister(s) Family Medical History: Cancer General Exam Limitations: no limitations Course Vital Signs 10/03/19 10/03/19 10/03/19 20:24 20:30 20:59 Temperature 97.8 F Pulse Rate 85 74 72 Respiratory 16 15 18 Rate Blood Pressure 182/93 182/93 164/88 O2 Sat by Pulse 95 95 95 Oximetry 10/03/19 10/03/19 10/03/19 21:00 21:30 22:00 Temperature Pulse Rate 72 74 73 Respiratory 19 18 16 Rate Blood Pressure 164/88 169/95 152/80 O2 Sat by Pulse 95 97 96 Oximetry Medical Decision Making - Lab Data Result diagrams: 10/03/19 20:32 10/03/19 20:32 Lab Results 10/03/19 10/03/19 Range/Units 20:32 20:32 WBC 7.5 (3.8-10.6) k/uL RBC 3.73 L (4.30-5.90) m/uL Hgb 11.7 L (13.0-17.5) gm/dL Hct 34.3 L (39.0-53.0) % MCV 91.9 (80.0-100.0) fL MCH 31.4 (25.0-35.0) pg MCHC 34.1 (31.0-37.0) g/dL RDW 12.1 (11.5-15.5) % Plt Count 239 (150-450) k/uL Neutrophils % 73 % Lymphocytes % 18 % Monocytes % 6 % Eosinophils % 1 % Basophils % 0 % Neutrophils # 5.4 (1.3-7.7) k/uL Lymphocytes # 1.3 (1.0-4.8) k/uL Monocytes # 0.5 (0-1.0) k/uL Eosinophils # 0.1 (0-0.7) k/uL Basophils # 0.0 (0-0.2) k/uL Sodium 142 (137-145) mmol/L Potassium 3.7 (3.5-5.1) mmol/L Chloride 110 H (98-107) mmol/L Carbon Dioxide 23 (22-30) mmol/L Anion Gap 9 mmol/L BUN 14 (9-20) mg/dL Creatinine 1.07 (0.66-1.25) mg/dL Est GFR (CKD-EPI)AfAm 73 (>60 ml/min/1.73 sqM) Est GFR (CKD-EPI)NonAf 64 (>60 ml/min/1.73 sqM) Glucose 117 H (74-99) mg/dL Calcium 8.6 (8.4-10.2) mg/dL Magnesium 2.2 (1.6-2.3) mg/dL Disposition Clinical Impression: Dizziness Disposition: HOME SELF-CARE Condition: Good Instructions (If sedation given, give patient instructions): Medicinal Use of Cannabis (ED), Dizziness (ED) Is patient prescribed a controlled substance at d/c from ED?: No Referrals: Arleen Estevez DO [Primary Care Provider] - 1-2 days Time of Disposition: 23:01
[2019-10-03 21:11] LABS: Basophils % (A) 0 %; Eosinophils # (A) 0.1 k/uL (0-0.7); Eosinophils % (A) 1 %; HCT 34.3 % (39.0-53.0); HGB 11.7 gm/dL (13.0-17.5); Lymphocytes # (A) 1.3 k/uL (1.0-4.8); Lymphocytes % (A) 18 %; MCH 31.4 pg (25.0-35.0); MCHC 34.1 g/dL (31.0-37.0); MCV 91.9 fL (80.0-100.0); Mean Platelet Volume 7.1; Monocytes # (A) 0.5 k/uL (0-1.0); Monocytes % (A) 6 %; Neutrophils # (A) 5.4 k/uL (1.3-7.7); Neutrophils % (A) 73 %; Platelet Count 239 k/uL (150-450); RBC 3.73 m/uL (4.30-5.90); RDW 12.1 % (11.5-15.5); WBC 7.5 k/uL (3.8-10.6)
[2019-10-03 21:21] LABS: Calcium 8.6 mg/dL (8.4-10.2); Magnesium 2.2 mg/dL (1.6-2.3); Potassium 3.7 mmol/L (3.5-5.1)
[2019-10-04 00:18] VITALS: BP 157/78; PULSE 74; RESP 18; TEMP 98.2
== END 2019-10-04 00:17 | disposition home or self-care (01) ==
LOC: EC 20:18
DX: R42 Dizziness and giddiness (principal); I10 Essential (primary) hypertension; E78.5 Hyperlipidemia, unspecified; K21.9 Gastro-esophageal reflux disease without esophagitis; I25.2 Old myocardial infarction; Z79.82 Long term (current) use of aspirin; Z79.899 Other long term (current) drug therapy; Z95.5 Presence of coronary angioplasty implant and graft; Z85.820 Personal history of malignant melanoma of skin
CPT/HCPCS: 36415; 80048; 83735; 85025; 93005; 96361; 96374; 99284

== ENCOUNTER 2020-03-10 03:52 | Emergency (ER) | payer MEDICARE ==
[2020-03-10 04:02] VITALS: RESP 18; TEMP 98.2
[2020-03-10] MEDS ORDERED: PANTOPRAZOLE 40 MG/10 ML VIAL IVP STA (04:23)
[2020-03-10] MEDS ORDERED: ONDANSETRON 4 MG/2 ML VIAL IVP STA (04:23)
[2020-03-10] MEDS ORDERED: SODIUM CHLORIDE 0.9% 1,000 ML IV STA (04:23)
[2020-03-10] MEDS ORDERED: DICYCLOMINE 10 MG/ML 2 ML AMP IM STA (04:24)
[2020-03-10 04:39] LABS: Basophils % (A) 0 %; Eosinophils # (A) 0.2 k/uL (0-0.7); Eosinophils % (A) 2 %; HCT 41.1 % (39.0-53.0); HGB 13.6 gm/dL (13.0-17.5); Lymphocytes # (A) 1.5 k/uL (1.0-4.8); Lymphocytes % (A) 18 %; MCH 30.3 pg (25.0-35.0); MCHC 33.2 g/dL (31.0-37.0); MCV 91.4 fL (80.0-100.0); Mean Platelet Volume 8.2; Monocytes # (A) 0.5 k/uL (0-1.0); Monocytes % (A) 6 %; Neutrophils # (A) 6.1 k/uL (1.3-7.7); Neutrophils % (A) 72 %; Platelet Count 240 k/uL (150-450); RBC 4.49 m/uL (4.30-5.90); RDW 12.3 % (11.5-15.5); WBC 8.4 k/uL (3.8-10.6)
[2020-03-10 04:45] LABS: Albumin 4.3 g/dL (3.5-5.0); Calcium 9.4 mg/dL (8.4-10.2); Potassium 3.9 mmol/L (3.5-5.1); Total Protein 7.5 g/dL (6.3-8.2)
[2020-03-10 04:46] LABS: Appearance,Urine Clear (Clear); Bilirubin,Urine Negative (Negative); Blood,Urine Negative (Negative); Color,Urine Light Yellow; Glucose,Urine (UA) Negative (Negative); Ketones,Urine Negative (Negative); Leukocyte Esterase,Urine Negative (Negative); Nitrite,Urine Negative (Negative); Protein,Urine Negative (Negative); Specific Gravity,Urine 1.005 (1.001-1.035); Urobilinogen,Urine <2.0 mg/dL (<2.0)
--- NOTE | 2020-03-10 05:01 | ED ---
Abdominal Pain HPI - General Chief Complaint: Abdominal Pain Stated Complaint: High blood pressure Time Seen by Provider: 03/10/20 04:11 Source: patient, EMS, RN notes reviewed, old records reviewed Mode of arrival: EMS Limitations: no limitations - History of Present Illness Initial Comments: This is a 4-year-old male DF for evaluation of abdominal pain abdominal bloating epigastric abdominal pain and concern for his high blood pressure. Patient does not normally of high blood pressure since L as well as normal though he does take blood pressure medication. Patient has no current active chest pain no shortness of breath or fevers. Patient concerned for elevated blood pressure concern for bloating MD Complaint: abdominal pain, other (Epigastric pain) -: hour(s) Location: periumbilical, epigastric Radiation: epigastric Migration to: no migration Severity: moderate Severity scale (1-10): 4 Quality: fullness Consistency: intermittent Improves With: nothing Worsens With: nothing Associated Symptoms: nausea - Related Data Home Medications Medication Instructions Recorded Confirmed Aspirin 81 mg PO DAILY 03/27/15 05/13/19 Simvastatin [Zocor] 40 mg PO HS 03/27/15 05/13/19 diphenhydrAMINE [Benadryl] 50 mg PO DAILY PRN 03/27/15 05/13/19 Losartan Potassium [Cozaar] 25 mg PO DAILY 04/11/18 05/13/19 Metoprolol Tartrate [Lopressor] 25 mg PO BID 04/11/18 05/13/19 Nitroglycerin Sl Tabs [Nitrostat] 0.4 mg SUBLINGUAL Q5M PRN 05/12/19 05/13/19 Omeprazole [PriLOSEC] 20 mg PO AC-BRKFST 05/12/19 05/13/19 Allergies Allergy/AdvReac Type Severity Reaction Status Date / Time No Known Allergies Allergy Verified 03/10/20 04:02 Review of Systems ROS Statement: Those systems with pertinent positive or pertinent negative responses have been documented in the HPI. ROS Other: All systems not noted in ROS Statement are negative. Past Medical History Past Medical History: Cancer, GERD/Reflux, Hyperlipidemia, Hypertension, Myocardial Infarction ([place]) Additional Past Medical History / Comment(s): Broken sternum April 11, 2018, skin cancer melanoma Last Myocardial Infarction Date:: 2011 History of Any Multi-Drug Resistant Organisms: None Reported Past Surgical History: Heart Catheterization With Stent, Hernia Repair Additional Past Surgical History / Comment(s): hernia x4 Past Anesthesia/Blood Transfusion Reactions: No Reported Reaction Date of Last Stent Placement:: 2011 Past Psychological History: No Psychological Hx Reported Smoking Status: Never smoker Past Alcohol Use History: None Reported Past Drug Use History: None Reported - Past Family History Sister(s) Family Medical History: Cancer General Exam Limitations: no limitations General appearance: alert, in no apparent distress Head exam: Present: atraumatic, normocephalic, normal inspection Eye exam: Present: normal appearance, PERRL, EOMI. Absent: scleral icterus, conjunctival injection, periorbital swelling ENT exam: Present: normal exam, mucous membranes moist Neck exam: Present: normal inspection. Absent: tenderness, meningismus, lymphadenopathy Respiratory exam: Present: normal lung sounds bilaterally. Absent: respiratory distress, wheezes, rales, rhonchi, stridor Cardiovascular Exam: Present: regular rate, normal rhythm, normal heart sounds. Absent: systolic murmur, diastolic murmur, rubs, gallop, clicks GI/Abdominal exam: Present: soft, distended ( patient has mild bloating no tenderness), normal bowel sounds. Absent: tenderness, guarding, rebound, rigid Extremities exam: Present: normal inspection, full ROM, normal capillary refill. Absent: tenderness, pedal edema, joint swelling, calf tenderness Back exam: Present: normal inspection Neurological exam: Present: alert, oriented X3, CN II-XII intact Psychiatric exam: Present: normal affect, normal mood Skin exam: Present: warm, dry, intact, normal color. Absent: rash Course Vital Signs 03/10/20 03:54 Temperature 98.2 F Pulse Rate 83 Respiratory 18 Rate Blood Pressure 188/92 O2 Sat by Pulse 95 Oximetry - Reevaluation(s) Reevaluation #1: 03/10/20 05:01 Medical record is reviewed Reevaluation #2: 03/10/20 05:01 Symptoms are improved Reevaluation #3: 03/10/20 05:57 patient symptoms improved Medical Decision Making - Medical Decision Making 84 male to the ER for evaluation in regards to epigastric abdominal pain with some mild bloating. CT [facility] pelvis negative for acute disease as well as la bwork. Patient can be discharged home - Lab Data Result diagrams: 03/10/20 04:00 03/10/20 04:00 Lab Results 03/10/20 03/10/20 03/10/20 Range/Units 04:00 04:00 04:00 WBC 8.4 (3.8-10.6) k/uL RBC 4.49 (4.30-5.90) m/uL Hgb 13.6 (13.0-17.5) gm/dL Hct 41.1 (39.0-53.0) % MCV 91.4 (80.0-100.0) fL MCH 30.3 (25.0-35.0) pg MCHC 33.2 (31.0-37.0) g/dL RDW 12.3 (11.5-15.5) % Plt Count 240 (150-450) k/uL Neutrophils % 72 % Lymphocytes % 18 % Monocytes % 6 % Eosinophils % 2 % Basophils % 0 % Neutrophils # 6.1 (1.3-7.7) k/uL Lymphocytes # 1.5 (1.0-4.8) k/uL Monocytes # 0.5 (0-1.0) k/uL Eosinophils # 0.2 (0-0.7) k/uL Basophils # 0.0 (0-0.2) k/uL Sodium 130 L (137-145) mmol/L Potassium 3.9 (3.5-5.1) mmol/L Chloride 94 L (98-107) mmol/L Carbon Dioxide 26 (22-30) mmol/L Anion Gap 10 mmol/L BUN 11 (9-20) mg/dL Creatinine 1.01 (0.66-1.25) mg/dL Est GFR (CKD-EPI)AfAm 78 (>60 ml/min/1.73 sqM) Est GFR (CKD-EPI)NonAf 68 (>60 ml/min/1.73 sqM) Glucose 114 H (74-99) mg/dL Plasma Lactic Acid Tee 0.9 (0.7-2.0) mmol/L Calcium 9.4 (8.4-10.2) mg/dL Total Bilirubin 1.0 (0.2-1.3) mg/dL AST 27 (17-59) U/L ALT 15 (4-49) U/L Alkaline Phosphatase 74 (38-126) U/L Creatine Kinase 90 (55-170) U/L Troponin I (0.000-0.034) ng/mL Total Protein 7.5 (6.3-8.2) g/dL Albumin 4.3 (3.5-5.0) g/dL Amylase 54 (30-110) U/L Lipase 105 (23-300) U/L Urine Color Urine Appearance (Clear) Urine pH (5.0-8.0) Ur Specific [place] (1.001-1.035) Urine Protein (Negative) Urine Glucose (UA) (Negative) Urine Ketones (Negative) Urine Blood (Negative) Urine Nitrite (Negative) Urine Bilirubin (Negative) Urine Urobilinogen (<2.0) mg/dL Ur Leukocyte Esterase (Negative) 03/10/20 03/10/20 Range/Units 04:00 04:28 WBC (3.8-10.6) k/uL RBC (4.30-5.90) m/uL Hgb (13.0-17.5) gm/dL Hct (39.0-53.0) % MCV (80.0-100.0) fL MCH (25.0-35.0) pg MCHC (31.0-37.0) g/dL RDW (11.5-15.5) % Plt Count (150-450) k/uL Neutrophils % % Lymphocytes % % Monocytes % % Eosinophils % % Basophils % % Neutrophils # (1.3-7.7) k/uL Lymphocytes # (1.0-4.8) k/uL Monocytes # (0-1.0) k/uL Eosinophils # (0-0.7) k/uL Basophils # (0-0.2) k/uL Sodium (137-145) mmol/L Potassium (3.5-5.1) mmol/L Chloride (98-107) mmol/L Carbon Dioxide (22-30) mmol/L Anion Gap mmol/L BUN (9-20) mg/dL Creatinine (0.66-1.25) mg/dL Est GFR (CKD-EPI)AfAm (>60 ml/min/1.73 sqM) Est GFR (CKD-EPI)NonAf (>60 ml/min/1.73 sqM) Glucose (74-99) mg/dL Plasma Lactic Acid Tee (0.7-2.0) mmol/L Calcium (8.4-10.2) mg/dL Total Bilirubin (0.2-1.3) mg/dL AST (17-59) U/L ALT (4-49) U/L Alkaline Phosphatase (38-126) U/L Creatine Kinase (55-170) U/L Troponin I <0.012 (0.000-0.034) ng/mL Total Protein (6.3-8.2) g/dL Albumin (3.5-5.0) g/dL Amylase (30-110) U/L Lipase (23-300) U/L Urine Color Light Yellow Urine Appearance Clear (Clear) Urine pH 7.0 (5.0-8.0) Ur Specific [place] 1.005 (1.001-1.035) Urine Protein Negative (Negative) Urine Glucose (UA) Negative (Negative) Urine Ketones Negative (Negative) Urine Blood Negative (Negative) Urine Nitrite Negative (Negative) Urine Bilirubin Negative (Negative) Urine Urobilinogen <2.0 (<2.0) mg/dL Ur Leukocyte Esterase Negative (Negative) - Radiology Data Radiology results: report reviewed (CT angio chest , Ct abd pelvis negative for acute disease), image reviewed Disposition Clinical Impression: Abdominal pain, Hypertension Disposition: HOME SELF-CARE Condition: Good Instructions (If sedation given, give patient instructions): Abdominal Pain (ED) Is patient prescribed a controlled substance at d/c from ED?: No Referrals: Arleen Estevez DO [Primary Care Provider] - 1-2 days
--- NOTE | 2020-03-10 05:39 | CT ---
EXAMINATION TYPE: CT angio chest DATE OF EXAM: 03/10/2020 COMPARISON: None HISTORY: chest pain CT DLP: 549 mGycm Automated exposure control for dose reduction was used. CONTRAST: Performed with IV Contrast, patient injected with 100mL mL of Isovue 370. There are 3-D post processed images. There is some mild pleural thickening at the lung apices bilaterally. There is mild subsegmental atel ectasis at the right lung base. There is no pleural effusion. There is moderate size hiatal hernia. H eart size is normal. There is no pericardial effusion. There are no hilar masses. There are a few bronchial lymph nodes that measure up to 1 cm. There is no mediastinal adenopathy. Thoracic aorta shows no aneurysm or dissection. The ascending aorta measures 3.4 cm. There is normal contrast opacification of the pulmonary arteries. There are no filling defects. There are small calcified granulomata in the lower lobes. There is spurring in the thoracic spine. There i s no compression fracture. IMPRESSION: No evidence of pulmonary embolism. Mild bilateral scarring and subsegmental atelectasis as above. Hia charles hernia. Old granulomatous disease.
--- NOTE | 2020-03-10 05:49 | CT ---
EXAMINATION TYPE: CT abdomen pelvis w con DATE OF EXAM: 03/10/2020 COMPARISON: None HISTORY: abdominal pain CT DLP: 661 mGycm Automated exposure control for dose reduction was used. CONTRAST: Performed with IV Contrast, patient injected with 100mL mL of Isovue 370. Multiple axial sections were obtained from the diaphragm to the floor the pelvis with intravenous con trast. There is mild subsegmental atelectasis at the right lung base. There is no pleural effusion. There is hiatal hernia. Heart size is normal. Liver spleen pancreas appear normal. Bile ducts are not dilated. All bladder appears normal. Stomach is intact. There is no adrenal mass. Kidneys show satisfactory contrast opacification. There is no hydronephrosi s. Ureters are not dilated. Bladder distends smoothly. There is apparent right side scrotal hydrocele . There is no free fluid in the pelvis. There are numerous diverticula in the sigmoid colon. There is no mesenteric edema. There is no ascites or free air. There is no bowel obstruction. Appendix appear s normal. Lumbar vertebra show no compression fracture. 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 The bony pelvis is intact. IMPRESSION: Moderate sigmoid diverticulosis without diverticulitis. There is clearing of the minimal inflammatory changes of the proximal sigmoid colon compared to old exam. Normal appendix. Mild atelectasis right lung base improved compared to old exam.
[2020-03-10 06:15] VITALS: BP 151/83; PULSE 73
== END 2020-03-10 06:20 | disposition home or self-care (01) ==
LOC: EC 03:52
DX: I10 Essential (primary) hypertension (principal); R10.13 Epigastric pain; R10.33 Periumbilical pain; R14.0 Abdominal distension (gaseous); K21.9 Gastro-esophageal reflux disease without esophagitis; E78.5 Hyperlipidemia, unspecified; I25.2 Old myocardial infarction; Z79.82 Long term (current) use of aspirin; Z79.899 Other long term (current) drug therapy; Z85.820 Personal history of malignant melanoma of skin; Z95.5 Presence of coronary angioplasty implant and graft
CPT/HCPCS: 36415; 80053; 82150; 82550; 83605; 83690; 84484; 85025; 81003; 71275; 74177; 99285; 96374; 96375; 96361; 96372; J0500; J2405; C9113; Q9967

== ENCOUNTER 2020-03-12 04:16 | Emergency (ER) | payer MEDICARE ==
--- NOTE | 2020-03-12 04:44 | ED ---
Abdominal Pain HPI <Bob Murphy - Last Filed: 03/12/20 09:25> - General Source: patient, RN notes reviewed, old records reviewed Mode of arrival: ambulatory Limitations: no limitations - History of Present Illness MD Complaint: abdominal pain -: days(s) Location: diffuse Migration to: epigastric, suprapubic Severity: moderate Severity scale (1-10): 4 Quality: fullness Consistency: constant Improves With: nothing Worsens With: nothing Associated Symptoms: nausea, anorexia <Bob Levy - Last Filed: 03/12/20 22:36> - General Chief Complaint: Abdominal Pain Stated Complaint: abd pain Time Seen by Provider: 03/12/20 04:18 - History of Present Illness Initial Comments: This is a 84-year-old male to the ED for evaluation patient in evaluation regards to abdominal pain. Patient feels abdominal pain epigastric abdominal pain and bloating. He states he was in the ER recently for a similar thing was having elevated blood pressure at the time was blood pressures been fine today. No nausea vomiting no other changes feels like he is getting swollen patient does admit to some anxiety. No fevers. No change in bowel habits or bowel movements. Patient also feels that he is gaining weight. Appetite is been diminished (Bob Levy) - Related Data Home Medications Medication Instructions Recorded Confirmed Aspirin 81 mg PO DAILY 03/27/15 05/13/19 Simvastatin [Zocor] 40 mg PO HS 03/27/15 05/13/19 diphenhydrAMINE [Benadryl] 50 mg PO DAILY PRN 03/27/15 05/13/19 Losartan Potassium [Cozaar] 25 mg PO DAILY 04/11/18 05/13/19 Metoprolol Tartrate [Lopressor] 25 mg PO BID 04/11/18 05/13/19 Nitroglycerin Sl Tabs [Nitrostat] 0.4 mg SUBLINGUAL Q5M PRN 05/12/19 05/13/19 Omeprazole [PriLOSEC] 20 mg PO AC-BRKFST 05/12/19 05/13/19 Allergies Allergy/AdvReac Type Severity Reaction Status Date / Time No Known Allergies Allergy Verified 03/12/20 04:33 Review of Systems ROS Other: All systems not noted in ROS Statement are negative. <Bob Murphy - Last Filed: 03/12/20 09:25> ROS Other: All systems not noted in ROS Statement are negative. <Bob eLvy - Last Filed: 03/12/20 22:36> ROS Statement: Those systems with pertinent positive or pertinent negative responses have been documented in the HPI. Past Medical History Past Medical History: Cancer, GERD/Reflux, Hyperlipidemia, Hypertension, Myocardial Infarction ([place]) Additional Past Medical History / Comment(s): Broken sternum April 11, 2018, skin cancer melanoma Last Myocardial Infarction Date:: 2011 History of Any Multi-Drug Resistant Organisms: None Reported Past Surgical History: Heart Catheterization With Stent, Hernia Repair Additional Past Surgical History / Comment(s): hernia x4 Past Anesthesia/Blood Transfusion Reactions: No Reported Reaction Date of Last Stent Placement:: 2011 Past Psychological History: No Psychological Hx Reported Smoking Status: Never smoker Past Alcohol Use History: None Reported Past Drug Use History: None Reported - Past Family History Sister(s) Family Medical History: Cancer <MildredMarke Tre - Last Filed: 03/12/20 22:36> General Exam Limitations: no limitations General appearance: alert, in no apparent distress Head exam: Present: atraumatic, normocephalic, normal inspection Eye exam: Present: normal appearance, PERRL, EOMI. Absent: scleral icterus, conjunctival injection, periorbital swelling ENT exam: Present: normal exam, mucous membranes moist Neck exam: Present: normal inspection. Absent: tenderness, meningismus, lymphadenopathy Respiratory exam: Present: normal lung sounds bilaterally. Absent: respiratory distress, wheezes, rales, rhonchi, stridor Cardiovascular Exam: Present: regular rate, normal rhythm, normal heart sounds. Absent: systolic murmur, diastolic murmur, rubs, gallop, clicks GI/Abdominal exam: Present: soft, distended (Mildly distended still soft), tenderness, normal bowel sounds. Absent: guarding, rebound, rigid Extremities exam: Present: normal inspection, full ROM, normal capillary refill. Absent: tenderness, pedal edema, joint swelling, calf tenderness Back exam: Present: normal inspection Neurological exam: Present: alert, oriented X3, CN II-XII intact Psychiatric exam: Present: normal affect, normal mood Skin exam: Present: warm, dry, intact, normal color. Absent: rash <Roskopp,Bob B - Last Filed: 03/12/20 22:36> Course <Bob Levy - Last Filed: 03/12/20 22:36> Vital Signs 03/12/20 03/12/20 03/12/20 04:29 06:23 07:52 Temperature 98.2 F Pulse Rate 79 61 54 L Respiratory 20 20 18 Rate Blood Pressure 180/73 128/73 138/75 O2 Sat by Pulse 96 94 L 97 Oximetry 03/12/20 03/12/20 09:35 10:31 Temperature 97.0 F L 97.6 F Pulse Rate 68 65 Respiratory 18 18 Rate Blood Pressure 141/85 126/81 O2 Sat by Pulse 96 96 Oximetry - Reevaluation(s) Reevaluation #1: 03/12/20 06:12 Medical record prior ER visit are reviewed (Bob Levy) Medical Decision Making - Lab Data Result diagrams: 03/12/20 05:10 03/12/20 05:10 <Bob Murphy - Last Filed: 03/12/20 09:25> - Lab Data Result diagrams: 03/12/20 05:10 03/12/20 05:10 - Radiology Data Radiology results: report reviewed (X-ray abdominal series with chest is negative for acute disease,US GALLBLADDER NEGATIVE FOR ACUTE DISEASE), image reviewed <Bob Levy - Last Filed: 03/12/20 22:36> - Medical Decision Making Patient was signed out to me by Dr. Levy. I went in and evaluated the patient he was sleeping and woke him up he states he is here because she's been bloated and has had a bowel movement 5 days. KUB does show some constipation left side of his: Area patient will get magnesium citrate to take home he was in agreement with this. (Bob Murphy) 84 male for abdominal bloating lab values and workup is negative here in the ER patient's okay for discharge home (Bob Levy) - Lab Data Lab Results 03/12/20 03/12/20 03/12/20 Range/Units 05:10 05:10 05:10 WBC 5.0 (3.8-10.6) k/uL RBC 4.24 L (4.30-5.90) m/uL Hgb 13.5 (13.0-17.5) gm/dL Hct 38.0 L (39.0-53.0) % MCV 89.6 (80.0-100.0) fL MCH 31.8 (25.0-35.0) pg MCHC 35.5 (31.0-37.0) g/dL RDW 12.1 (11.5-15.5) % Plt Count 240 (150-450) k/uL Neutrophils % 61 % Lymphocytes % 24 % Monocytes % 9 % Eosinophils % 2 % Basophils % 1 % Neutrophils # 3.0 (1.3-7.7) k/uL Lymphocytes # 1.2 (1.0-4.8) k/uL Monocytes # 0.5 (0-1.0) k/uL Eosinophils # 0.1 (0-0.7) k/uL Basophils # 0.0 (0-0.2) k/uL Sodium 128 L (137-145) mmol/L Potassium 4.1 (3.5-5.1) mmol/L Chloride 93 L (98-107) mmol/L Carbon Dioxide 27 (22-30) mmol/L Anion Gap 8 mmol/L BUN 19 (9-20) mg/dL Creatinine 0.91 (0.66-1.25) mg/dL Est GFR (CKD-EPI)AfAm 89 (>60 ml/min/1.73 sqM) Est GFR (CKD-EPI)NonAf 77 (>60 ml/min/1.73 sqM) Glucose 112 H (74-99) mg/dL Plasma Lactic Acid Tee (0.7-2.0) mmol/L Calcium 10.0 (8.4-10.2) mg/dL Total Bilirubin 0.9 (0.2-1.3) mg/dL AST 32 (17-59) U/L ALT 17 (4-49) U/L Alkaline Phosphatase 65 (38-126) U/L Troponin I (0.000-0.034) ng/mL Total Protein 7.5 (6.3-8.2) g/dL Albumin 4.3 (3.5-5.0) g/dL Amylase 62 (30-110) U/L Lipase 139 (23-300) U/L Urine Color Light Yellow Urine Appearance Clear (Clear) Urine pH 7.0 (5.0-8.0) Ur Specific [place] 1.007 (1.001-1.035) Urine Protein Negative (Negative) Urine Glucose (UA) Negative (Negative) Urine Ketones Negative (Negative) Urine Blood Negative (Negative) Urine Nitrite Negative (Negative) Urine Bilirubin Negative (Negative) Urine Urobilinogen <2.0 (<2.0) mg/dL Ur Leukocyte Esterase Negative (Negative) 03/12/20 03/12/20 Range/Units 05:10 05:10 WBC (3.8-10.6) k/uL RBC (4.30-5.90) m/uL Hgb (13.0-17.5) gm/dL Hct (39.0-53.0) % MCV (80.0-100.0) fL MCH (25.0-35.0) pg MCHC (31.0-37.0) g/dL RDW (11.5-15.5) % Plt Count (150-450) k/uL Neutrophils % % Lymphocytes % % Monocytes % % Eosinophils % % Basophils % % Neutrophils # (1.3-7.7) k/uL Lymphocytes # (1.0-4.8) k/uL Monocytes # (0-1.0) k/uL Eosinophils # (0-0.7) k/uL Basophils # (0-0.2) k/uL Sodium (137-145) mmol/L Potassium (3.5-5.1) mmol/L Chloride (98-107) mmol/L Carbon Dioxide (22-30) mmol/L Anion Gap mmol/L BUN (9-20) mg/dL Creatinine (0.66-1.25) mg/dL Est GFR (CKD-EPI)AfAm (>60 ml/min/1.73 sqM) Est GFR (CKD-EPI)NonAf (>60 ml/min/1.73 sqM) Glucose (74-99) mg/dL Plasma Lactic Acid Tee 0.5 L (0.7-2.0) mmol/L Calcium (8.4-10.2) mg/dL Total Bilirubin (0.2-1.3) mg/dL AST (17-59) U/L ALT (4-49) U/L Alkaline Phosphatase (38-126) U/L Troponin I 0.012 (0.000-0.034) ng/mL Total Protein (6.3-8.2) g/dL Albumin (3.5-5.0) g/dL Amylase (30-110) U/L Lipase (23-300) U/L Urine Color Urine Appearance (Clear) Urine pH (5.0-8.0) Ur Specific [place] (1.001-1.035) Urine Protein (Negative) Urine Glucose (UA) (Negative) Urine Ketones (Negative) Urine Blood (Negative) Urine Nitrite (Negative) Urine Bilirubin (Negative) Urine Urobilinogen (<2.0) mg/dL Ur Leukocyte Esterase (Negative) Disposition Is patient prescribed a controlled substance at d/c from ED?: No Time of Disposition: 09:26 <Bob Murphy - Last Filed: 03/12/20 09:25> Is patient prescribed a controlled substance at d/c from ED?: No <Bob Levy - Last Filed: 03/12/20 22:36> Clinical Impression: Constipation, Abdominal pain Disposition: HOME SELF-CARE Condition: Good Instructions (If sedation given, give patient instructions): Constipation (ED), Abdominal Pain (ED) Referrals: Arleen Estevez DO [Primary Care Provider] - 1-2 days
[2020-03-12] MEDS ORDERED: SODIUM CHLORIDE 0.9% 1,000 ML IV STA (04:52)
[2020-03-12] MEDS ORDERED: PANTOPRAZOLE 40 MG/10 ML VIAL IVP STA (04:52)
[2020-03-12] MEDS ORDERED: MORPHINE SULFATE 4 MG/ML SYRINGE IV STA (04:52)
[2020-03-12 05:29] LABS: Appearance,Urine Clear (Clear); Basophils % (A) 1 %; Bilirubin,Urine Negative (Negative); Blood,Urine Negative (Negative); Color,Urine Light Yellow; Eosinophils # (A) 0.1 k/uL (0-0.7); Eosinophils % (A) 2 %; Glucose,Urine (UA) Negative (Negative); HGB 13.5 gm/dL (13.0-17.5); Ketones,Urine Negative (Negative); Leukocyte Esterase,Urine Negative (Negative); Lymphocytes # (A) 1.2 k/uL (1.0-4.8); Lymphocytes % (A) 24 %; MCH 31.8 pg (25.0-35.0); MCHC 35.5 g/dL (31.0-37.0); MCV 89.6 fL (80.0-100.0); Mean Platelet Volume 8.1; Monocytes # (A) 0.5 k/uL (0-1.0); Monocytes % (A) 9 %; Neutrophils % (A) 61 %; Nitrite,Urine Negative (Negative); Platelet Count 240 k/uL (150-450); Protein,Urine Negative (Negative); RBC 4.24 m/uL (4.30-5.90); RDW 12.1 % (11.5-15.5); Specific Gravity,Urine 1.007 (1.001-1.035); Urobilinogen,Urine <2.0 mg/dL (<2.0)
[2020-03-12 05:39] LABS: Albumin 4.3 g/dL (3.5-5.0); Potassium 4.1 mmol/L (3.5-5.1); Total Bilirubin 0.9 mg/dL (0.2-1.3); Total Protein 7.5 g/dL (6.3-8.2)
--- NOTE | 2020-03-12 06:07 | XR ---
EXAMINATION TYPE: XR abdomen acute w cxr DATE OF EXAM: 03/12/2020 COMPARISON: 03/25/2019 HISTORY: Abdominal pain TECHNIQUE: 4 views FINDINGS: Heart appears normal. Lungs are clear of consolidation. There are no hilar masses. There is no sign of pleural effusion. There is no sign of intestinal obstruction or pneumoperitoneum. There i s no evidence of a mass. There are no pathologic calcifications over the kidneys. Lung bases are michelle r. IMPRESSION: Nonacute abdomen. No active cardiopulmonary disease. Abdomen unchanged compared to old ex am.
--- NOTE | 2020-03-12 07:50 | US ---
EXAMINATION TYPE: US gallbladder DATE OF EXAM: 03/12/2020 COMPARISON: NONE CLINICAL HISTORY: pain. Abdominal pain, bloating for 1 week EXAM MEASUREMENTS: Liver Length: 15.3 cm Gallbladder Wall: 0.2 cm CBD: obscured by overlying bowel content Right Kidney: 9.6 x 4.3 x 3.8 cm Technical limitations due to large amount of overlying bowel content Pancreas: Obscured by bowel gas Liver: best seen intercostally, appears wnl as visualized Gallbladder: no evidence of stones Evidence for sonographic De La Paz's sign: no CBD: Obscured by overlying bowel gas Right Kidney: no evidence of hydronephrosis IMPRESSION: No sonographic evidence of acute cholecystitis however, bile duct is obscured by bowel ga s. Bowel gas also obscures the pancreas and portions of the liver.
[2020-03-12 07:53] VITALS: RESP 18
[2020-03-12] MEDS ORDERED: MAGNESIUM CITRATE 296 ML BOTTLE PO ONE (09:24)
[2020-03-12 10:32] VITALS: BP 126/81; PULSE 65; TEMP 97.6
== END 2020-03-12 10:32 | disposition home or self-care (01) ==
LOC: EC 04:16
DX: K59.00 Constipation, unspecified (principal); I10 Essential (primary) hypertension; E78.5 Hyperlipidemia, unspecified; K21.9 Gastro-esophageal reflux disease without esophagitis; I25.2 Old myocardial infarction; Z79.82 Long term (current) use of aspirin; Z79.899 Other long term (current) drug therapy; Z95.5 Presence of coronary angioplasty implant and graft; Z85.820 Personal history of malignant melanoma of skin
CPT/HCPCS: 36415; 80053; 82150; 83605; 83690; 84484; 85025; 81003; 74022; 76705; 99284; 96374; 96375; 96361 ×5; J2270; C9113

== ENCOUNTER 2020-04-27 16:18 | Observation (INO) | payer MEDICARE ==
[2020-04-27] MEDS ORDERED: FAMOTIDINE 20 MG/2 ML VIAL IV STA (16:54)
[2020-04-27] MEDS ORDERED: SODIUM CHLORIDE 0.9% 1,000 ML IV STA (16:54)
[2020-04-27] MEDS ORDERED: ONDANSETRON 4 MG/2 ML VIAL IVP STA (16:54)
[2020-04-27 17:23] LABS: Basophils % (A) 0 %; Eosinophils # (A) 0.1 k/uL (0-0.7); Eosinophils % (A) 1 %; HCT 36.5 % (39.0-53.0); Lymphocytes # (A) 1.1 k/uL (1.0-4.8); Lymphocytes % (A) 15 %; MCHC 35.7 g/dL (31.0-37.0); MCV 89.8 fL (80.0-100.0); Mean Platelet Volume 7.7; Monocytes # (A) 0.4 k/uL (0-1.0); Monocytes % (A) 5 %; Neutrophils # (A) 5.3 k/uL (1.3-7.7); Neutrophils % (A) 76 %; Platelet Count 247 k/uL (150-450); RBC 4.07 m/uL (4.30-5.90); RDW 12.1 % (11.5-15.5)
[2020-04-27 17:34] LABS: ALT 14 U/L (4-49); AST 29 U/L (17-59); African American GFR (CKD) >90 (>60 ml/min/1.73 sqM); Albumin 4.1 g/dL (3.5-5.0); Alkaline Phosphatase 73 U/L (38-126); Amylase 53 U/L (30-110); Anion Gap 10 mmol/L; Blood Urea Nitrogen 10 mg/dL (9-20); Carbon Dioxide 24 mmol/L (22-30); Chloride 89 mmol/L (98-107); Glucose 117 mg/dL (74-99); Non-African American GFR(CKD) 81 (>60 ml/min/1.73 sqM); Potassium 4.5 mmol/L (3.5-5.1); Sodium 123 mmol/L (137-145); Total Bilirubin 1.1 mg/dL (0.2-1.3); Total Protein 7.2 g/dL (6.3-8.2)
--- NOTE | 2020-04-27 17:45 | XR ---
EXAMINATION TYPE: XR KUB DATE OF EXAM: 04/27/2020 COMPARISON: 03/12/2020 HISTORY: Abdominal pain TECHNIQUE: 2 views upright FINDINGS: There is no sign of intestinal obstruction or pneumoperitoneum. Fecal pattern is normal. Sera ng bases are clear. There are no pathologic calcifications. IMPRESSION: Nonacute abdomen. No change.
--- NOTE | 2020-04-27 17:47 | ED ---
General Adult HPI - General Chief complaint: Nausea/Vomiting/Diarrhea Stated complaint: Abd pain, hypertensive Time Seen by Provider: 04/27/20 16:36 Source: patient, RN notes reviewed Mode of arrival: ambulatory Limitations: no limitations - History of Present Illness Initial comments: This 84-year-old male presents emergency Department chief complaint of abdominal pain. Patient states that he's had abdominal last 2 days felt very bloated so he decided to take magnesium citrate dizziness constipated. Patient states that he had multiple bowel movements and to the point where now it is clear. Patient states though today his stomach has felt very weak and he's been vomiting. Patient states that he just has some gurgling mild abdominal discomfort. He shouldn't denies any fevers or chills. Patient presents to the emergency Department because of increased weakness and abdominal issues. Patient denies chest pain or shortness of breath. Denies any headache or dizziness. - Related Data Home Medications Medication Instructions Recorded Confirmed Aspirin 81 mg PO DAILY 03/27/15 05/13/19 Simvastatin [Zocor] 40 mg PO HS 03/27/15 05/13/19 diphenhydrAMINE [Benadryl] 50 mg PO DAILY PRN 03/27/15 05/13/19 Losartan Potassium [Cozaar] 25 mg PO DAILY 04/11/18 05/13/19 Metoprolol Tartrate [Lopressor] 25 mg PO BID 04/11/18 05/13/19 Nitroglycerin Sl Tabs [Nitrostat] 0.4 mg SUBLINGUAL Q5M PRN 05/12/19 05/13/19 Omeprazole [PriLOSEC] 20 mg PO AC-BRKFST 05/12/19 05/13/19 Allergies Allergy/AdvReac Type Severity Reaction Status Date / Time No Known Allergies Allergy Verified 04/27/20 16:31 Review of Systems ROS Statement: Those systems with pertinent positive or pertinent negative responses have been documented in the HPI. ROS Other: All systems not noted in ROS Statement are negative. Past Medical History Past Medical History: Cancer, GERD/Reflux, Hyperlipidemia, Hypertension, Myocardial Infarction ([place]) Additional Past Medical History / Comment(s): Broken sternum April 11, 2018, skin cancer melanoma Last Myocardial Infarction Date:: 2011 History of Any Multi-Drug Resistant Organisms: None Reported Past Surgical History: Heart Catheterization With Stent, Hernia Repair Additional Past Surgical History / Comment(s): hernia x4 Past Anesthesia/Blood Transfusion Reactions: No Reported Reaction Date of Last Stent Placement:: 2011 Past Psychological History: No Psychological Hx Reported Smoking Status: Never smoker Past Alcohol Use History: None Reported Past Drug Use History: None Reported - Past Family History Sister(s) Family Medical History: Cancer General Exam Limitations: no limitations General appearance: alert, in no apparent distress Head exam: Present: atraumatic, normocephalic, normal inspection Eye exam: Present: normal appearance, PERRL, EOMI. Absent: scleral icterus, conjunctival injection, periorbital swelling ENT exam: Present: normal exam, normal oropharynx, mucous membranes moist, TM's normal bilaterally Neck exam: Present: normal inspection, full ROM. Absent: tenderness, meningismus, lymphadenopathy Respiratory exam: Present: normal lung sounds bilaterally. Absent: respiratory distress, wheezes, rales, rhonchi, stridor Cardiovascular Exam: Present: regular rate, normal rhythm, normal heart sounds. Absent: systolic murmur, diastolic murmur, rubs, gallop, clicks GI/Abdominal exam: Present: soft, normal bowel sounds. Absent: distended, te nderness, guarding, rebound, rigid Neurological exam: Present: alert, oriented X3, CN II-XII intact, reflexes normal. Absent: motor sensory deficit Skin exam: Present: warm, dry, intact, normal color. Absent: rash Course Vital Signs 04/27/20 16:26 Temperature 98.1 F Pulse Rate 62 Respiratory 18 Rate Blood Pressure 152/69 O2 Sat by Pulse 98 Oximetry Medical Decision Making - Medical Decision Making 84-year-old male presented for abdominal pain nausea vomiting. Patient found to have hyponatremia with sodium 123. Patient's had GI loss through diarrhea, vomiting. Patient be admitted for IV fluid hydration and further evaluation. - Lab Data Result diagrams: 04/27/20 17:05 04/27/20 17:05 Lab Results 04/27/20 04/27/20 04/27/20 Range/Units 17:05 17:05 17:57 WBC 7.0 (3.8-10.6) k/uL RBC 4.07 L (4.30-5.90) m/uL Hgb 13.0 (13.0-17.5) gm/dL Hct 36.5 L (39.0-53.0) % MCV 89.8 (80.0-100.0) fL MCH 32.0 (25.0-35.0) pg MCHC 35.7 (31.0-37.0) g/dL RDW 12.1 (11.5-15.5) % Plt Count 247 (150-450) k/uL Neutrophils % 76 % Lymphocytes % 15 % Monocytes % 5 % Eosinophils % 1 % Basophils % 0 % Neutrophils # 5.3 (1.3-7.7) k/uL Lymphocytes # 1.1 (1.0-4.8) k/uL Monocytes # 0.4 (0-1.0) k/uL Eosinophils # 0.1 (0-0.7) k/uL Basophils # 0.0 (0-0.2) k/uL Sodium 123 L (137-145) mmol/L Potassium 4.5 (3.5-5.1) mmol/L Chloride 89 L (98-107) mmol/L Carbon Dioxide 24 (22-30) mmol/L Anion Gap 10 mmol/L BUN 10 (9-20) mg/dL Creatinine 0.81 (0.66-1.25) mg/dL Est GFR (CKD-EPI)AfAm >90 (>60 ml/min/1.73 sqM) Est GFR (CKD-EPI)NonAf 81 (>60 ml/min/1.73 sqM) Glucose 117 H (74-99) mg/dL Calcium 9.0 (8.4-10.2) mg/dL Total Bilirubin 1.1 (0.2-1.3) mg/dL AST 29 (17-59) U/L ALT 14 (4-49) U/L Alkaline Phosphatase 73 (38-126) U/L Total Protein 7.2 (6.3-8.2) g/dL Albumin 4.1 (3.5-5.0) g/dL Amylase 53 (30-110) U/L Lipase 99 (23-300) U/L Urine Color Yellow Urine Appearance Clear (Clear) Urine pH 8.0 (5.0-8.0) Ur Specific [place] 1.011 (1.001-1.035) Urine Protein Negative (Negative) Urine Glucose (UA) Negative (Negative) Urine Ketones Negative (Negative) Urine Blood Negative (Negative) Urine Nitrite Negative (Negative) Urine Bilirubin Negative (Negative) Urine Urobilinogen <2.0 (<2.0) mg/dL Ur Leukocyte Esterase Negative (Negative) Disposition Clinical Impression: Dehydration, Hyponatremia Disposition: ADMITTED IP TO THIS HOSP Condition: Fair Referrals: Arleen Estevez DO [Primary Care Provider] - 1-2 days
[2020-04-27 18:09] LABS: Appearance,Urine Clear (Clear); Bilirubin,Urine Negative (Negative); Blood,Urine Negative (Negative); Color,Urine Yellow; Glucose,Urine (UA) Negative (Negative); Ketones,Urine Negative (Negative); Leukocyte Esterase,Urine Negative (Negative); Nitrite,Urine Negative (Negative); Protein,Urine Negative (Negative); Specific Gravity,Urine 1.011 (1.001-1.035); Urobilinogen,Urine <2.0 mg/dL (<2.0)
[2020-04-27] MEDS ORDERED: ONDANSETRON 4 MG/2 ML VIAL IVP PRN (18:17)
[2020-04-27] MEDS ORDERED: NALOXONE 0.4 MG/ML 1 ML VIAL IV PRN (18:17)
[2020-04-27] MEDS ORDERED: ACETAMINOPHEN TAB 325 MG TAB PO PRN (18:17)
[2020-04-27] MEDS: SODIUM CHLORIDE 0.9% 1,000 ML IV SCH (18:39)
[2020-04-27] MEDS ORDERED: NITROGLYCERIN SL TABS 0.4 MG TAB SUBLINGUAL PRN (22:54)
[2020-04-27] MEDS ORDERED: HYDROcodone/APAP 5-325MG 1 EACH TAB PO PRN (22:56)
[2020-04-27] MEDS ORDERED: IOPAMIDOL CONTRAST (ORAL USE) VIAL PO PRN (22:56)
[2020-04-27] MEDS ORDERED: HYDROmorphone 0.5 MG/0.5 ML SYRINGE IVP PRN (22:56)
[2020-04-27] MEDS ORDERED: ALPRAZolam 0.25 MG TAB PO PRN (22:56)
[2020-04-28] MEDS: PANTOPRAZOLE 40 MG/10 ML VIAL IVP SCH ×3 (00:32→22:01)
--- NOTE | 2020-04-28 01:16 | HP ---
HISTORY AND PHYSICAL DATE OF SERVICE: 04/27/2020 CHIEF COMPLAINTS: Abdominal pain, vomiting and as well as some diarrhea. HISTORY OF PRESENT ILLNESS: This 84-year-old gentleman with a past medical history of multiple medical problems including history of GERD, hypertension, hyperlipidemia, myocardial infarction, history of broken sternum, skin cancer, history of CAD/stent being followed by Dr. Estevez in the outpatient setting not feeling well over the past several days. Patient apparently had abdominal pain and constipation. Patient took some magnesium citrate for bloating and the patient has some diarrheal episodes subsequent to that and the patient also complaining of some nausea. Patient had significant loss of appetite. The patient is vomiting and the patient came to [facility] and admitted for further evaluation and treatment. Patient also had some gurgling in the abdomen. Otherwise, there is no history of any fever, rigors, chills at this time. The sodium was found to be 123 on admission indicating significant hyponatremia. The KUB x-ray done at the time of admission showed nonspecific changes. There is no history of fever or rigors. No history of headache, loss of consciousness, or seizures. PAST MEDICAL HISTORY: History of GERD, hypertension, hyperlipidemia, myocardial infarction, history of sternal fracture. MEDICATIONS: Medications are: 1. Benadryl 50 mg daily p.r.n. 2. Zocor 40 mg at bedtime. 3. Prilosec 20 mg a.c. breakfast. 4. Nitrostat 0.4 sublingual p.r.n. 5. Lopressor 25 mg p.o. b.i.d. 6. Cozaar 50 mg p.o. daily. 7. Aspirin 81 mg p.o. daily. ALLERGIES: None. FAMILY HISTORY: History of cancer in the family. SOCIAL HISTORY: No history of smoking. No history of alcohol intake. REVIEW OF SYSTEMS: ENT: Diminished hearing and diminished vision. CARDIOVASCULAR SYSTEM: No angina. RESPIRATORY SYSTEM: As mentioned earlier. GI: No nausea. : No dysuria. NERVOUS SYSTEMS: No numbness or weakness. ALLERGY/IMMUNOLOGY: No asthma or hayfever. MUSCULOSKELETAL: As mentioned earlier. HEMATOLOGY: No history of anemia. ENDOCRINE: No history of diabetes or hypothyroidism. CONSTITUTIONAL: As mentioned earlier. DERMATOLOGY: Negative. RHEUMATOLOGY: Negative. PSYCHIATRY: As mentioned earlier. PHYSICAL EXAMINATION: Patient is alert and oriented x3. Pulse is 71, blood pressure 172/81, respiration 18, temperature 97.9, pulse ox 94% on room air. HEENT: Conjunctivae normal. Oral mucosa dry. NECK: No jugular venous distention. No carotid bruit. No lymph node enlargement. CARDIOVASCULAR: S1, S2 muffled. No S3, no S4. RESPIRATORY: Breath sounds diminished in the bases. A few scattered rhonchi. No crackles. ABDOMEN: Soft. Mild diffuse distention. Mild diffuse discomfort also especially in the epigastrium. Bowel sounds present. No ascites. No mass palpable. LEGS: No edema, no swelling. NERVOUS SYSTEM: Higher function as mentioned earlier. Moves all 4 limbs. No focal motor or sensory deficit. LYMPHATICS: No lymphadenopathy of the neck, axillae or groin. SKIN: No ulcer, rash or bleeding. JOINTS: No active deforming arthropathy. LABS: WBC 7, hemoglobin 13, sodium 123, potassium 4.5 and glucose 117. ASSESSMENT: 1. Nausea, vomiting, abdominal pain for evaluation, possibly ileus, rule out bowel obstruction or peptic ulcer disease or acute gastritis and gastroenteritis. 2. Severe hyponatremia and dehydration. 3. Elevated random glucose. 4. Gastroesophageal reflux disease. 5. Hypertension. 6. Hyperlipidemia. 7. History of myocardial infarction. 8. History of sternal fracture. 9. History of skin cancer, melanoma. 10.History of coronary artery disease, stent. 11.FULL CODE. RECOMMENDATIONS AND DISCUSSION: This is an 84-year-old gentleman presented with multiple complex medical issues, initiate the current medications. Otherwise, I would recommend a CT scan of the abdomen, symptomatic treatment. The patient also reports the symptoms are similar to the episodes related to cardiac stenting previously, so I would recommend a cardiology consultation and serial troponins. Prognosis guarded. Resume home medications. Discussed with the patient, he understands. Further recommendations to follow. A copy of dictation forwarded to Dr. Estevez, who is the primary physician. MMODL / IJN: [id number] /
[2020-04-28 07:52] LABS: Basophils % (A) 1 %; Eosinophils # (A) 0.1 k/uL (0-0.7); Eosinophils % (A) 2 %; HCT 34.8 % (39.0-53.0); HGB 11.9 gm/dL (13.0-17.5); Lymphocytes # (A) 1.1 k/uL (1.0-4.8); Lymphocytes % (A) 23 %; MCH 31.6 pg (25.0-35.0); MCHC 34.2 g/dL (31.0-37.0); MCV 92.4 fL (80.0-100.0); Mean Platelet Volume 7.7; Monocytes # (A) 0.4 k/uL (0-1.0); Monocytes % (A) 9 %; Neutrophils # (A) 2.9 k/uL (1.3-7.7); Neutrophils % (A) 63 %; Platelet Count 233 k/uL (150-450); RBC 3.76 m/uL (4.30-5.90); RDW 12.3 % (11.5-15.5); WBC 4.6 k/uL (3.8-10.6)
[2020-04-28 08:02] LABS: Calcium 8.6 mg/dL (8.4-10.2); Potassium 4.5 mmol/L (3.5-5.1)
[2020-04-28] MEDS: LOSARTAN 50 MG TAB PO SCH (10:04)
[2020-04-28] MEDS: METOPROLOL TARTRATE 25 MG TAB PO SCH ×2 (10:05→22:01)
[2020-04-28] MEDS: SODIUM CHLORIDE 0.9% 1,000 ML IV SCH ×2 (10:10→22:01)
--- NOTE | 2020-04-28 10:17 | P.CRDCN ---
History of Present Illness History of present illness: HISTORY OF PRESENTING ILLNESS This is a pleasant 84-year-old male past medical history significant for coronary artery disease status post PCI of the proximal circumflex in 2012, dyslipidemia and hypertension. He follows in the office with Dr. Shah. We have been asked to see in consultation for coronary artery disease. He presented to the hospital with symptoms of abdominal pain, bloating, constipation and subsequent diarrhea. He states for the previous 3-4 weeks he has been experiencing abdominal discomfort and bloating. He followed in the office with Dr. Shah a couple of days ago and underwent a Lexiscan stress test that was normal. There is no evidence of reversibility. He also had an echocardiogram at that time revealing preserved LV systolic function with ejection fraction 55% with no wall motion abnormalities noted, normal diastolic function and mild MR and mild TR. He states his symptoms started approximately 3-4 weeks ago with increased abdominal bloating. Over the weekend he took magnesium citrate to attempt to move his bowels. He started having diarrhea yesterday around 4 AM. He has had poor oral intake due to his abdominal discomfort and did have one episode of vomiting prior to arrival. There is no EKG obtained on arrival. X-ray of the abdomen reveals a nonacute abdomen normal fecal pattern. Laboratory data reviewed, WBC 4.6, hemoglobin 11.9, platelets 233, sodium on admission 120 3 repeat today 132, potassium 4.5, creatinine 0.9 and troponin negative 1. Current daily cardiac medications include aspirin 81 mg daily, losartan 50 mg daily, Lopressor 25 mg twice a day and simvastatin 40 mg at bedtime. REVIEW OF SYSTEMS At the time of my exam: CONSTITUTIONAL: Denies fever or chills. CARDIOVASCULAR: Denies chest pain, shortness of breath, orthopnea, PND or palpitations. RESPIRATORY: Denies cough. GASTROINTESTINAL: Denies abdominal pain, diarrhea, constipation, nausea or vomiting. MUSCULOSKELETAL: Denies myalgias. NEUROLOGIC: Denies numbness, tingling or weakness. ENDOCRINE: Denies fatigue, weight change, polydipsia or polyurina. GENITOURINARY: Denies burning, hematuria or urgency with micturation. HEMATOLOGIC: Denies history of anemia or bleeding. PHYSICAL EXAMINATION Blood pressure 132/43 heart rate 77 afebrile and maintaining oxygen saturation on room air. CONSTITUTIONAL: No apparent distress. HEENT: Head is normocephalic. Pupils are equal, round. Sclerae anicteric. Mucous membranes of the mouth are moist. No JVD. No carotid bruit. CHEST EXAMINATION: Lungs are clear to auscultation. No chest wall tenderness is noted on palpation or with deep breathing. HEART EXAMINATION: Regular rate and rhythm. S1, S2 heard. No murmurs, gallops or rub. ABDOMEN: Soft, nontender. Positive bowel sounds. EXTREMITIES: 2+ peripheral pulses, no lower extremity edema and no calf tenderness. NEUROLOGIC EXAMINATION: Patient is awake, alert and oriented x3. ASSESSMENT Abdominal pain, bloating and constipation History of coronary artery disease status post PCI 2011 Hypertension Dyslipidemia PLAN Obtain baseline EKG. Clinically stable from a cardiac perspective. Recent stress test and echocardiogram obtained in the office earlier in April were both normal. Ongoing medical management and evaluation of abdominal pain and bloating. Thank you kindly for this consultation. Nurse Practitioner note has been reviewed, I agree with a documented findings and plan of care. Patient was seen and examined. Past Medical History Past Medical History: Cancer, GERD/Reflux, Hyperlipidemia, Hypertension, Myocardial Infarction ([place]) Additional Past Medical History / Comment(s): Broken sternum April 11, 2018, skin cancer melanoma Last Myocardial Infarction Date:: 2011 History of Any Multi-Drug Resistant Organisms: None Reported Past Surgical History: Heart Catheterization With Stent, Hernia Repair Additional Past Surgical History / Comment(s): hernia x4 Past Anesthesia/Blood Transfusion Reactions: No Reported Reaction Date of Last Stent Placement:: 2011 Past Psychological History: No Psychological Hx Reported Smoking Status: Never smoker Past Alcohol Use History: None Reported Past Drug Use History: None Reported - Past Family History Sister(s) Family Medical History: Cancer Medications and Allergies Home Medications Medication Instructions Recorded Confirmed Type Aspirin 81 mg PO DAILY 03/27/15 04/27/20 History Simvastatin [Zocor] 40 mg PO HS 03/27/15 04/27/20 History diphenhydrAMINE [Benadryl] 50 mg PO DAILY PRN 03/27/15 04/27/20 History Metoprolol Tartrate [Lopressor] 25 mg PO BID 04/11/18 04/27/20 History Nitroglycerin Sl Tabs [Nitrostat] 0.4 mg SUBLINGUAL Q5M PRN 05/12/19 04/27/20 History Omeprazole [PriLOSEC] 20 mg PO AC-BRKFST 05/12/19 04/27/20 History Losartan [Cozaar] 50 mg PO DAILY 04/27/20 04/27/20 History Allergies Allergy/AdvReac Type Severity Reaction Status Date / Time No Known Allergies Allergy Verified 04/27/20 18:29 Physical Exam Vitals: Vital Signs Temp Pulse Resp BP Pulse Ox 04/28/20 07:01 65 16 104/60 94 L 04/28/20 00:35 97.9 F 67 18 124/65 96 04/27/20 22:43 97.9 F 71 18 172/81 94 L 04/27/20 19:00 66 18 144/76 95 04/27/20 16:26 98.1 F 62 18 152/69 98 Intake and Output 04/27/20 04/28/20 04/28/20 22:59 06:59 14:59 Other: Weight 78.471 kg Results 04/28/20 07:17 04/28/20 07:17 Cardiac Enzymes 04/27/20 04/27/20 Range/Units 17:05 23:23 AST 29 (17-59) U/L Troponin I <0.012 (0.000-0.034) ng/mL CBC 04/27/20 04/28/20 Range/Units 17:05 07:17 WBC 7.0 4.6 (3.8-10.6) k/uL RBC 4.07 L 3.76 L (4.30-5.90) m/uL Hgb 13.0 11.9 L (13.0-17.5) gm/dL Hct 36.5 L 34.8 L (39.0-53.0) % Plt Count 247 233 (150-450) k/uL Comprehensive Metabolic Panel 04/27/20 04/27/20 04/28/20 Range/Units 17:05 23:23 07:17 Sodium 123 L 127 L 132 L (137-145) mmol/L Potassium 4.5 4.5 (3.5-5.1) mmol/L Chloride 89 L 102 (98-107) mmol/L Carbon Dioxide 24 25 (22-30) mmol/L BUN 10 8 L (9-20) mg/dL Creatinine 0.81 0.94 (0.66-1.25) mg/dL Glucose 117 H 101 H (74-99) mg/dL Calcium 9.0 8.6 (8.4-10.2) mg/dL AST 29 (17-59) U/L ALT 14 (4-49) U/L Alkaline Phosphatase 73 (38-126) U/L Total Protein 7.2 (6.3-8.2) g/dL Albumin 4.1 (3.5-5.0) g/dL Current Medications Generic Name Dose Route Start Last Admin Trade Name Freq PRN Reason Stop Dose Admin Acetaminophen 650 mg 04/27/20 18:17 Tylenol Tab PO Q6HR PRN Mild Pain or Fever > 100.5 Hydrocodone Bitart/Acetaminophen 1 each 04/27/20 22:56 [place] 5-325 PO Q6HR PRN Pain Alprazolam 0.25 mg 04/27/20 22:56 Xanax PO TID PRN Anxiety Atorvastatin Calcium 20 mg 04/28/20 21:00 Lipitor PO HS ROSALEE Hydromorphone HCl 0.5 mg 04/27/20 22:56 Dilaudid IVP Q4HR PRN Severe Pain Sodium Chloride 1,000 mls @ 75 mls/hr 04/27/20 18:30 04/27/20 18:39 Saline 0.9% IV 75 mls/hr .[id number] ROSALEE Administration Iopamidol 30 ml 04/27/20 22:56 [id number] (For Oral Use) PO 04/28/20 22:[address] Scan Losartan Potassium 50 mg 04/28/20 09:00 Cozaar PO DAILY ROSALEE Metoprolol Tartrate 25 mg 04/28/20 09:00 Lopressor PO BID ROSALEE Naloxone HCl 0.2 mg 04/27/20 18:17 Narcan IV Q2M PRN Opioid Reversal Nitroglycerin 0.4 mg 04/27/20 22:54 Nitrostat SUBLINGUAL Q5M PRN Chest Pain Ondansetron HCl 4 mg 04/27/20 18:17 Zofran IVP Q8HR PRN Nausea And Vomiting Pantoprazole Sodium 40 mg 04/27/20 23:00 04/28/20 00:32 Protonix IVP 40 mg BID ROSALEE Administration Intake and Output 04/27/20 04/28/20 04/28/20 22:59 06:59 14:59 Other: Weight 78.471 kg 04/28/20 07:17 04/28/20 07:17
--- NOTE | 2020-04-28 10:38 | CT ---
EXAMINATION TYPE: CT abdomen pelvis wo con DATE OF EXAM: 04/28/2020 COMPARISON: 03/10/2020 and 04/27/2019 HISTORY: 84-year-old male with abdominal Pain and distention CT DLP: 601.8 mGycm. Automated exposure control for dose reduction was used. TECHNIQUE: Contiguous axial scanning of the abdomen and pelvis without IV contrast. Coronal and sagit charles reconstructions performed. FINDINGS: Heart normal size without pericardial effusion. Moderate-sized hiatal hernia. Minimal strandy atelect asis or scarring at the posterior right base. No pleural effusion. Noncontrast appearance of the liver, gallbladder, adrenal glands, kidneys, spleen, and pancreas withi n normal limits. No dilated small bowel, free fluid, or free air. No mesenteric or retroperitoneal lymphadenopathy. Ce ntral vinay mesentery unchanged from 04/27/2019 suggesting a benign etiology. Normal appendix. No significant stool burden. Left colonic diverticulosis, more extensive within the sigmoid colon. No pericolonic inflammatory change identified. Moderate atherosclerotic calcifications throughout the abdominal aorta without aneurysm. There is a c ommon trunk of the celiac axis and SMA with moderate atherosclerotic narrowing at this level. Bladder is distended. Prostate gland measures 4.3 cm wide. Similar density along the right inguinal canal could represent an intracanalicular testicle or encyst ed hydrocele. No abnormal fluid collection in the pelvis or pelvic lymphadenopathy seen. Bones: Mild degenerative change at the hips. 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 Grade 2, nearly grade 3 anterolisthesis at L5-S1 secondary to L5 pars defects. Severe bilateral neuro foraminal stenoses at these levels. IMPRESSION: 1. Central vinay mesentery unchanged from 04/27/2019 suggesting a chronic postinflammatory etiology. 2. Moderate-sized hiatal hernia. 3. Left hemicolonic diverticulosis, extensive in the sigmoid colon. No evidence for acute diverticul itis. 4. Incidental common trunk of the celiac axis and SMA with moderate atherosclerotic narrowing at the vessel origin. 5. Unchanged density along the right inguinal canal could represent an intracanalicular testicle or encysted hydrocele. Again, unchanged back to 04/27/2019. 6. 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 Severe bilater al neuroforaminal stenosis here.
--- NOTE | 2020-04-28 17:44 | PN ---
PROGRESS NOTE DATE OF SERVICE: 04/28/2020 This 84-year-old gentleman with abdominal pain, nausea, vomiting and some diarrhea was suspected to have acute gastroenteritis. A CT scan of the abdomen and pelvis was done this morning which showed chronic possible inflammatory etiology and hiatal hernia as well as left hemicolonic diverticulosis, extensive and unchanged in intensity in the right inguinal canal and a grade 2, nearly grade 3 anterior retrolisthesis, L5-S1. The patient also had hyponatremia yesterday, possibly hypovolemic, which is 132 today. The patient is being closely monitored. Glucose is 101, hemoglobin 7.9. Past medical history reviewed. REVIEW OF SYSTEMS: CARDIOVASCULAR SYSTEM: No angina, palpitations. RESPIRATORY SYSTEM: As mentioned earlier. GI: As mentioned earlier. : No dysuria or retention. NERVOUS SYSTEM: As mentioned earlier. CURRENT MEDICATIONS: Reviewed. They include: 1. Tylenol. 2. [place] 5 mg q.6 p.r.n. 3. Xanax 0.25 t.i.d. 4. Lipitor 20 mg. 5. Dilaudid. 6. Cozaar. 7. Lopressor. 8. Narcan. 9. Nitrostat. 10.Zofran. 11.Protonix. PHYSICAL EXAMINATION: Patient is alert, oriented x3. Pulse is 77, blood pressure 132/43, respiration 18, temperature 97.6, pulse ox 99% on room air. HEENT: Conjunctivae normal. NECK: No jugular venous distention. CARDIOVASCULAR SYSTEM: S1, S2 muffled. RESPIRATORY SYSTEM: Breath sounds diminished at the bases. A few scattered rhonchi and crackles. ABDOMEN: Soft. Mild diffuse discomfort. Otherwise nontender. No mass palpable. LEGS: No edema. No swelling. NERVOUS SYSTEM: No focal deficit. LABS: WBC 4.6, hemoglobin 11.9. Sodium 132 and glucose 101. ASSESSMENT: 1. Nausea, vomiting, abdominal pain with possible acute gastroenteritis. Rule out peptic ulcer disease. 2. Severe hyponatremia and dehydration, present on admission. 3. Elevated random glucose. 4. Gastroesophageal reflux disease. 5. Hypertension. 6. Hyperlipidemia. 7. History of myocardial infarction. 8. History of sternal fracture. 9. History of skin cancer, melanoma. 10.History of coronary artery disease, stent. 11.FULL CODE. RECOMMENDATIONS AND DISCUSSION: I recommend to continue current medications, continue with the monitoring, symptomatic treatment. Otherwise at this time I would also recommend a surgical evaluation. Prognosis guarded because of multiple complex medical issues. Further recommendations to follow. Continue the rest of the medications. MMODL / IJN: [id number] /
[2020-04-28] MEDS: ATORVASTATIN 20 MG TAB PO SCH (22:01)
[2020-04-29 08:37] VITALS: RESP 16
[2020-04-29] MEDS: LOSARTAN 50 MG TAB PO SCH (08:45)
[2020-04-29] MEDS: METOPROLOL TARTRATE 25 MG TAB PO SCH ×2 (08:45→20:52)
[2020-04-29] MEDS: PANTOPRAZOLE 40 MG/10 ML VIAL IVP SCH ×2 (08:45→20:52)
[2020-04-29] MEDS: SODIUM CHLORIDE 0.9% 1,000 ML IV SCH (08:47)
[2020-04-29 09:36] LABS: Basophils % (A) 0 %; Eosinophils # (A) 0.1 k/uL (0-0.7); Eosinophils % (A) 2 %; HCT 36.4 % (39.0-53.0); HGB 12.2 gm/dL (13.0-17.5); Lymphocytes % (A) 20 %; MCH 31.6 pg (25.0-35.0); MCHC 33.5 g/dL (31.0-37.0); MCV 94.5 fL (80.0-100.0); Mean Platelet Volume 7.6; Monocytes # (A) 0.4 k/uL (0-1.0); Monocytes % (A) 8 %; Neutrophils # (A) 3.1 k/uL (1.3-7.7); Neutrophils % (A) 66 %; Platelet Count 237 k/uL (150-450); RBC 3.85 m/uL (4.30-5.90); RDW 12.3 % (11.5-15.5); WBC 4.7 k/uL (3.8-10.6)
[2020-04-29 09:53] LABS: Calcium 8.6 mg/dL (8.4-10.2); Potassium 4.1 mmol/L (3.5-5.1)
[2020-04-29] MEDS: metroNIDAZOLE-NS PMX 500 MG in SALINE 1 100ML.BAG IVPB SCH ×3 (11:11→23:17)
--- NOTE | 2020-04-29 11:49 | P.PN ---
Subjective HISTORY OF PRESENTING ILLNESS This is a pleasant 84-year-old male past medical history significant for coronary artery disease status post PCI of the proximal circumflex in 2011, dyslipidemia and hypertension. He follows in the office with Dr. Shah. He is seen and examined sitting up in bed in no acute distress. He continues to feel bloated and nauseated however he was able to tolerate his breakfast this morning. He denies chest pain, shortness of breath, dizziness or palpitations. Blood pressure 105/51 heart rate 61 afebrile and maintaining oxygen saturation on room air. Laboratory data reviewed, WBC 4.7, hemoglobin 12.2, platelets 237, sodium 131, potassium 4.1 and creatinine 0.98. Baseline EKG obtained and reviewed. No ischemic changes noted. Currently maintained on atorvastatin 20 mg daily, losartan 50 mg daily and Lopressor 25 mg twice a day. PHYSICAL EXAMINATION CONSTITUTIONAL: No apparent distress. HEENT: Head is normocephalic. Pupils are equal, round. Sclerae anicteric. Mucous membranes of the mouth are moist. No JVD. No carotid bruit. CHEST EXAMINATION: Lungs are clear to auscultation. No chest wall tenderness is noted on palpation or with deep breathing. HEART EXAMINATION: Regular rate and rhythm. S1, S2 heard. No murmurs, gallops or rub. EXTREMITIES: 2+ peripheral pulses, no lower extremity edema and no calf tenderness. ASSESSMENT Abdominal pain, bloating and constipation History of coronary artery disease status post PCI 2011 Hypertension Dyslipidemia PLAN Stable from a cardiac perspective. Ongoing medical management and evaluation of ongoing abdominal pain. Surgery consult pending. We will continue to follow as needed, follow up with Dr. Shah upon discharge. Nurse Practitioner note has been reviewed, I agree with a documented findings and plan of care. Patient was seen and examined. Objective - Vital Signs Vital signs: Vital Signs Temp 98.3 F 04/29/20 07:00 Pulse 61 04/29/20 07:00 Resp 16 04/29/20 07:00 BP 105/51 04/29/20 07:00 Pulse Ox 95 04/29/20 07:00 Intake & Output 04/28/20 04/29/20 04/29/20 18:59 06:59 18:59 Intake Total 800 Balance 800 Weight 78.471 kg Intake: IV 800 Levofloxacin 500Mg-D5w 100 Pmx 500 mg In Dextrose/ Water 1 100ml.bag @ 100 mls/hr IVPB Q24H [facility] Rx#: [id number] Sodium Chloride 0.9% 1, 600 000 ml @ 75 mls/hr IV . [id number] [facility] Rx#:[id number] metroNIDAZOLE-NS PMX 500 100 mg In Saline 1 100ml.bag @ 100 mls/hr IVPB Q8HR [facility] Rx#:[id number] Other: # Voids 2 - Labs CBC & Chem 7: 04/29/20 08:45 04/29/20 08:45 Labs: Abnormal Lab Results - Last 24 Hours (Table) 04/28/20 04/29/20 04/29/20 Range/Units 11:49 08:45 08:45 RBC 3.85 L (4.30-5.90) m/uL Hgb 12.2 L (13.0-17.5) gm/dL Hct 36.4 L (39.0-53.0) % Sodium 128 L 131 L (137-145) mmol/L Glucose 101 H (74-99) mg/dL
[2020-04-29] MEDS: LEVOFLOXACIN 500MG-D5W PMX 500 MG in DEXTROSE/WATER 1 100ML.BAG IVPB SCH (12:10)
--- NOTE | 2020-04-29 16:06 | P.GSCN ---
History of Present Illness Consult date: 04/29/20 Reason for Consult: abdominal pain History of present illness: this is an 84-year-old male wted to the hospital with coabdominal pain. Patient states he had some after drinking mag citrate. Patient states his pain isoved. Past Medical History Past Medical History: Coronary Artery Disease (CAD), Cancer, GERD/Reflux, Hyperlipidemia, Hypertension, Myocardial Infarction ([place]) Additional Past Medical History / Comment(s): Pt denies hx of [place] stating he had no heart damage but had blockage/vfib/cardiac arrest/stenting, gastritis, hiatal hernia, schatzki ring per past medical record, occasional dysphagia, diverticular disease, 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 Last Myocardial Infarction Date:: 2011 History of Any Multi-Drug Resistant Organisms: None Reported Past Surgical History: Heart Catheterization With Stent, Hernia Repair Additional Past Surgical History / Comment(s): EGD with unsuccessful dilation, colonosocpy, bilateral inguinal hernia surgery done twice each side, R orchiectomy d/t hydrocele, skin cancer removed from nose. Past Anesthesia/Blood Transfusion Reactions: No Reported Reaction, Motion Sickne ss Date of Last Stent Placement:: 2011 Smoking Status: Former smoker - Past Family History Sister(s) Family Medical History: Cancer Mother Family Medical History: CVA/TIA, Hypertension Additional Family Medical History / Comment(s): Mother from a CVA at the age of 79yrs. Father Family Medical History: Respiratory Disorder Additional Family Medical History / Comment(s): Father worked in [employer]. He of black lung at the age of 55 yrs. Medications and Allergies Home Medications Medication Instructions Recorded Confirmed Type Aspirin 81 mg PO DAILY 03/27/15 04/27/20 History Simvastatin [Zocor] 40 mg PO HS 03/27/15 04/27/20 History diphenhydrAMINE [Benadryl] 50 mg PO DAILY PRN 03/27/15 04/27/20 History Metoprolol Tartrate [Lopressor] 25 mg PO BID 04/11/18 04/27/20 History Nitroglycerin Sl Tabs [Nitrostat] 0.4 mg SUBLINGUAL Q5M PRN 05/12/19 04/27/20 History Omeprazole [PriLOSEC] 20 mg PO AC-BRKFST 05/12/19 04/27/20 History Losartan [Cozaar] 50 mg PO DAILY 04/27/20 04/27/20 History Allergies Allergy/AdvReac Type Severity Reaction Status Date / Time No Known Allergies Allergy Verified 04/27/20 18:29 Surgical - Exam Vital Signs Temp Pulse Resp BP Pulse Ox 98.1 F 62 18 152/69 98 04/27/20 16:26 04/27/20 16:26 04/27/20 16:26 04/27/20 16:26 04/27/20 16:26 - General well developed, well nourished, no distress - Eyes PERRL - ENT normal pinna - Neck no masses - Respiratory normal expansion - Cardiovascular Rhythm: regular - Abdomen minimal epigastric tenderness Abdomen: soft Results - Labs 04/29/20 08:45 04/29/20 08:45 Abnormal Lab Results - Last 24 Hours (Table) 04/29/20 04/29/20 Range/Units 08:45 08:45 RBC 3.85 L (4.30-5.90) m/uL Hgb 12.2 L (13.0-17.5) gm/dL Hct 36.4 L (39.0-53.0) % Sodium 131 L (137-145) mmol/L Glucose 101 H (74-99) mg/dL Diabetes panel 04/29/20 Range/Units 08:45 Sodium 131 L (137-145) mmol/L Potassium 4.1 (3.5-5.1) mmol/L Chloride 101 (98-107) mmol/L Carbon Dioxide 24 (22-30) mmol/L BUN 11 (9-20) mg/dL Creatinine 0.98 (0.66-1.25) mg/dL Glucose 101 H (74-99) mg/dL Calcium 8.6 (8.4-10.2) mg/dL Calcium panel 04/29/20 Range/Units 08:45 Calcium 8.6 (8.4-10.2) mg/dL Pituitary panel 04/29/20 Range/Units 08:45 Sodium 131 L (137-145) mmol/L Potassium 4.1 (3.5-5.1) mmol/L Chloride 101 (98-107) mmol/L Carbon Dioxide 24 (22-30) mmol/L BUN 11 (9-20) mg/dL Creatinine 0.98 (0.66-1.25) mg/dL Glucose 101 H (74-99) mg/dL Calcium 8.6 (8.4-10.2) mg/dL Adrenal panel 04/29/20 Range/Units 08:45 Sodium 131 L (137-145) mmol/L Potassium 4.1 (3.5-5.1) mmol/L Chloride 101 (98-107) mmol/L Carbon Dioxide 24 (22-30) mmol/L BUN 11 (9-20) mg/dL Creatinine 0.98 (0.66-1.25) mg/dL Glucose 101 H (74-99) mg/dL Calcium 8.6 (8.4-10.2) mg/dL - Imaging CT scan - abdomen: report reviewed (large hiatal hernia) Assessment and Plan Plan: Resolving abdominal pain. Would recommend observation. Patient will have his diet advanced.
[2020-04-29] MEDS: ATORVASTATIN 20 MG TAB PO SCH (20:52)
--- NOTE | 2020-04-30 01:16 | PN ---
PROGRESS NOTE DATE OF SERVICE: 04/29/2020 This 84-year-old gentleman, admitted with features of hyponatremia and gastroenteritis is being closely monitored. No chest pain. No palpitations. No fever. PHYSICAL EXAMINATION: On exam, alert and oriented x3. Pulse 61. Blood pressure 105/51, respiration 16, temperature 98.3, pulse ox 94% on room air. HEENT: Conjunctivae normal. NECK: No jugular venous distention. CARDIOVASCULAR: S1, S2, muffled. RESPIRATORY: Breath sounds diminished in the bases. A few scattered rhonchi. ABDOMEN: Soft, mild diffuse discomfort. No guarding. No rigidity. No mass palpable. LEGS: No edema, no swelling. NERVOUS SYSTEM: No focal deficits. LABS: WBC 4.7, hemoglobin 12.2, sodium is 131. ASSESSMENT: 1. Nausea, vomiting, abdominal pain with possible acute gastroenteritis. 2. Severe hyponatremia with dehydration, present on admission. 3. Elevated random glucose. 4. Gastroesophageal reflux disease. 5. Hypertension. 6. Hyperlipidemia. 7. History of myocardial infarction. 8. History of sternal fracture. 9. History of skin cancer, melanoma. 10.History of coronary artery disease, stent. 11.FULL CODE. RECOMMENDATIONS AND DISCUSSION: Recommend to continue current medications. Continue with monitoring and symptomatic treatment. Otherwise at this time I recommend continue with current empiric antibiotics. Repeat sodium. Once the patient is stable, patient could be discharged home. Further recommendations to follow. NITIN / TONY: [id number] /
[2020-04-30] MEDS: SODIUM CHLORIDE 0.9% 1,000 ML IV SCH (02:06)
[2020-04-30] MEDS: metroNIDAZOLE-NS PMX 500 MG in SALINE 1 100ML.BAG IVPB SCH (08:19)
[2020-04-30] MEDS: LOSARTAN 50 MG TAB PO SCH (08:19)
[2020-04-30] MEDS: METOPROLOL TARTRATE 25 MG TAB PO SCH (08:19)
[2020-04-30] MEDS: PANTOPRAZOLE 40 MG/10 ML VIAL IVP SCH (08:20)
[2020-04-30 08:35] VITALS: BP 119/50; PULSE 63; TEMP 98.3
--- NOTE | 2020-04-30 09:57 | P.PN ---
Progress Note - Text Progress Note Date: 04/30/20 The patient resting comfortably in his bed. He is tolerating diet. He denies any significant nausea. He has no significant abdominal pain. On exam his vital signs are stable. Abdomen soft. Resolved abdominal pain, nausea. Patient appears to be stable for discharge.
[2020-04-30] MEDS: LEVOFLOXACIN 500MG-D5W PMX 500 MG in DEXTROSE/WATER 1 100ML.BAG IVPB SCH (10:24)
[2020-04-30 10:26] LABS: Basophils % (A) 0 %; Eosinophils # (A) 0.1 k/uL (0-0.7); Eosinophils % (A) 3 %; HCT 36.7 % (39.0-53.0); HGB 12.3 gm/dL (13.0-17.5); Lymphocytes # (A) 0.9 k/uL (1.0-4.8); Lymphocytes % (A) 18 %; MCH 31.5 pg (25.0-35.0); MCHC 33.5 g/dL (31.0-37.0); Mean Platelet Volume 7.8; Monocytes # (A) 0.4 k/uL (0-1.0); Monocytes % (A) 8 %; Neutrophils # (A) 3.5 k/uL (1.3-7.7); Neutrophils % (A) 69 %; Platelet Count 244 k/uL (150-450); RDW 12.3 % (11.5-15.5)
[2020-04-30 10:34] LABS: Calcium 8.6 mg/dL (8.4-10.2); Potassium 4.3 mmol/L (3.5-5.1)
--- NOTE | 2020-05-01 09:26 | P.DS ---
Providers Date of admission: 04/27/20 18:12 Expected date of discharge: 04/30/20 Attending physician: Elieser Randolph Consults: 04/27/20 22:55 Consult Physician Routine Consulting Provider: Melisa Abreu Consult Reason/Comments: cad Do you want consulting provider notified?: Yes 04/28/20 15:08 Consult Physician Routine Consulting Provider: Carlitos Kaminski Consult Reason/Comments: diverticulosis Do you want consulting provider notified?: Yes Primary care physician: Arleen Hernandez Hospital Course: Final diagnosis Nausea, vomiting, abdominal pain with possible acute gastroenteritis Severe hyponatremia with dehydration, present on admission Elevated random glucose GERD Hypertension Hyperlipidemia History of myocardial infarction History of sternal fracture History of skin cancer,melanoma History of CAD, stent Full code Discharge disposition Patient is being discharged in a stable condition with guarded prognosis to home. Patient will follow-up with Dr. Hernandez upon discharge. Patient will continue with oral antibiotics in the form of Cipro 500 mg twice daily along with Flagyl 500mg three times daily for 5 days. Patient will continue with Protonix as well. Patient will also follow up with cardiology Dr. Shah in the outpatient setting. Total time taken is greater than 35 minutes. History of present illness This is a 84-year-old male who was recently admitted with features of hyponatremia and gastroenteritis and was being closely monitored. Patient was placed on gentle IV hydration along with empiric antibiotics and is showing improvement. Sodium is 131 today. Patient was evaluated by cardiology as well as surgery. No surgical interventions planned at this time and to continue with antibiotics and close monitoring. Patients nausea and vomiting resolved. During hospitalization patient underwent CT of the abdomen showing central vinay mesentery unchanged from 04/27/19 findings, moderate sized hiatal hernia, unchanged density along the right inguinal canal as noted on previous CT, grade 2, nearly 3 anterolisthesis at L5-S1 due to bilateral L5pars defects with severe b/l neuroforaminal stenosis, and an incidental finding of common trunk of the celiac axis and SMA with moderate atherosclerotic narrowing at the vessel origin. Patient states he would like to go home today. Currently no reports of chest pain, palpitations, or shortness of breath. Patient is afebrile. No reports of nausea or vomiting and patient is tolerating diet. Guarded prognosis. On exam vital signs are stable. Temp is 98.3F, pulse is 63, respirations are 16, blood pressure 119/50, oxygen saturation is 96% on room air. Cardio S1, S2 are present. Respiratory shows diminished breath sounds bilaterally with no wheezing or rhonchi noted. Abdomen is soft and non-tender. Nervous system shows no focal deficits. Please refer to medication reconciliation sheet for a list of medications. Patient Condition at Discharge: Fair Plan - Discharge Summary Discharge Rx Participant: No New Discharge Prescriptions: New Ciprofloxacin HCl [Cipro] 500 mg PO BID 5 Days #10 tab metroNIDAZOLE [Flagyl] 500 mg PO Q8HR 5 Days #15 tab Pantoprazole Sodium [Protonix] 40 mg PO DAILY #30 tablet.dr Continue Aspirin 81 mg PO DAILY Simvastatin [Zocor] 40 mg PO HS diphenhydrAMINE [Benadryl] 50 mg PO DAILY PRN PRN Reason: Allergy Symptoms Metoprolol Tartrate [Lopressor] 25 mg PO BID Omeprazole [PriLOSEC] 20 mg PO AC-BRKFST Nitroglycerin Sl Tabs [Nitrostat] 0.4 mg SUBLINGUAL Q5M PRN PRN Reason: Chest Pain Losartan [Cozaar] 50 mg PO DAILY Discharge Medication List Aspirin 81 mg PO DAILY 03/27/15 [History] Simvastatin [Zocor] 40 mg PO HS 03/27/15 [History] diphenhydrAMINE [Benadryl] 50 mg PO DAILY PRN 03/27/15 [History] Metoprolol Tartrate [Lopressor] 25 mg PO BID 04/11/18 [History] Nitroglycerin Sl Tabs [Nitrostat] 0.4 mg SUBLINGUAL Q5M PRN 05/12/19 [History] Omeprazole [PriLOSEC] 20 mg PO AC-BRKFST 05/12/19 [History] Losartan [Cozaar] 50 mg PO DAILY 04/27/20 [History] Ciprofloxacin HCl [Cipro] 500 mg PO BID 5 Days #10 tab 04/30/20 [Rx] Pantoprazole Sodium [Protonix] 40 mg PO DAILY #30 tablet. 04/30/20 [Rx] metroNIDAZOLE [Flagyl] 500 mg PO Q8HR 5 Days #15 tab 04/30/20 [Rx] Follow up Appointment(s)/Referral(s): Vivian Shah MD [STAFF PHYSICIAN] - 05/14/20 8:30 am (Appointment set with [facility]) Arleen Hernandez DO [Primary Care Provider] - 05/04/20 10:00 am Patient Instructions/Handouts: Gastroenteritis (DC) Activity/Diet/Wound Care/Special Instructions: Activity Limited until follow-up Continue current diet Follow-up with primary care provider upon discharge Follow up with cardiology as discussed and scheduled Continue with antibiotics for 5 days until finished Continue with Protonix daily Discharge Disposition: HOME SELF-CARE
== END 2020-04-30 11:50 | disposition home or self-care (01) ==
LOC: EC 16:18 → INTOOBSV 18:12 → 3SCARD 18:12 → 5NMEDONC 20:53 → 4SSUR 04-28 03:49 → UNDODISIN 04-30 11:50
PROVIDERS: ADMIT Hospitalist; ATTEND Hospitalist
DX: R11.2 Nausea with vomiting, unspecified (principal); R10.9 Unspecified abdominal pain; E86.0 Dehydration; E87.1 Hypo-osmolality and hyponatremia; R73.02 Impaired glucose tolerance (oral); K21.9 Gastro-esophageal reflux disease without esophagitis; I10 Essential (primary) hypertension; E78.5 Hyperlipidemia, unspecified; I25.2 Old myocardial infarction; I25.10 Atherosclerotic heart disease of native coronary artery without angina pectoris; Z20.828 Contact with and (suspected) exposure to other viral communicable diseases; R63.0 Anorexia; Z68.26 Body mass index [BMI] 26.0-26.9, adult; R14.0 Abdominal distension (gaseous); K59.00 Constipation, unspecified; Z95.5 Presence of coronary angioplasty implant and graft; Z79.899 Other long term (current) drug therapy; Z79.82 Long term (current) use of aspirin; Z03.818 Encounter for observation for suspected exposure to other biological agents ruled out; Z85.820 Personal history of malignant melanoma of skin; Z87.81 Personal history of (healed) traumatic fracture; Z86.74 Personal history of sudden cardiac arrest; Z87.891 Personal history of nicotine dependence; Z87.19 Personal history of other diseases of the digestive system; Z98.890 Other specified postprocedural states; Z87.438 Personal history of other diseases of male genital organs; Z80.9 Family history of malignant neoplasm, unspecified; Z82.3 Family history of stroke; Z82.49 Family history of ischemic heart disease and other diseases of the circulatory system; Z83.6 Family history of other diseases of the respiratory system
CPT/HCPCS: 96375 ×2; 96376 ×3; 96361 ×5; 96365; 96366 ×2; 96367; 99284; 36415; 93005; 80053; 80048 ×3; 85652; 82150; 83690; 84295 ×2; 84484; 85025 ×4; 81003; 74018; 74176; G0378 ×6; U0003; J2405 ×2; J1956 ×2; C9113 ×3; 96374

== ENCOUNTER 2021-03-10 13:27 | Observation (INO) | payer MEDICARE ==
[2021-03-10 14:44] LABS: Basophils % (A) 1 %; Eosinophils % (A) 1 %; HCT 40.8 % (39.0-53.0); HGB 14.3 gm/dL (13.0-17.5); Lymphocytes # (A) 1.1 k/uL (1.0-4.8); Lymphocytes % (A) 19 %; MCH 31.6 pg (25.0-35.0); MCHC 35.2 g/dL (31.0-37.0); MCV 89.8 fL (80.0-100.0); Mean Platelet Volume 7.4; Monocytes # (A) 0.5 k/uL (0-1.0); Monocytes % (A) 8 %; Neutrophils # (A) 4.1 k/uL (1.3-7.7); Neutrophils % (A) 69 %; Platelet Count 262 k/uL (150-450); RBC 4.54 m/uL (4.30-5.90)
[2021-03-10 14:45] LABS: Appearance,Urine Clear (Clear); Bilirubin,Urine Negative (Negative); Blood,Urine Trace (Negative); Color,Urine Light Yellow; Glucose,Urine (UA) Negative (Negative); Ketones,Urine Negative (Negative); Leukocyte Esterase,Urine Negative (Negative); Mucus,Urine Rare /hpf; Nitrite,Urine Negative (Negative); Protein,Urine Negative (Negative); RBC,Urine 1 /hpf (0-5); Specific Gravity,Urine 1.008 (1.001-1.035); Squamous Epithelial Cell,Urine <1 /hpf (0-4); Urobilinogen,Urine <2.0 mg/dL (<2.0)
--- NOTE | 2021-03-10 14:52 | XR ---
EXAMINATION TYPE: XR KUB DATE OF EXAM: 03/10/2021 COMPARISON: 04/27/2020 INDICATION: Constipation, bloating TECHNIQUE: Single view abdomen FINDINGS: There is a normal colonic bowel gas pattern. No significant fecal retention is evident. Psoas margins are normal. No organomegaly is present. No suspicious calcifications are present. IMPRESSION: 1. Nonspecific bowel gas within the ascending colon. No significant fecal retention evident.
--- NOTE | 2021-03-10 14:52 | ED ---
Abdominal Pain HPI - General Chief Complaint: Abdominal Pain Stated Complaint: Abd Pain Time Seen by Provider: 03/10/21 14:03 Source: patient Mode of arrival: ambulatory Limitations: no limitations - History of Present Illness Initial Comments: 85-year-old male presenting for abdominal bloating times 2-3 days. pt states he has felt bloated for the past few days. pt denies pain but feels "puffy". She denies chest pain indigestion jaw pain and arm pain nausea vomiting. Patient states he has trouble with constipation his entire life he states sometimes he has 3-4 days of normal stools and a few days of constipation he did see has had some small bowel movements that were hard. He states that his last stool was slightly soft like diarrhea. Patient denies any blood in his stools or dark tarry stools. He denies any vomiting. Pt denies dyspnea. He states he had same symptoms a year ago and they "found nothing but gastritis". Patient has no addit ional complaints. He appears nontoxic in no acute distress, Resting comfortably, denying any pain. - Related Data Home Medications Medication Instructions Recorded Confirmed Aspirin 81 mg PO DAILY 03/27/15 03/10/21 Simvastatin [Zocor] 40 mg PO HS 03/27/15 03/10/21 Metoprolol Tartrate [Lopressor] 25 mg PO BID 04/11/18 03/10/21 Nitroglycerin Sl Tabs [Nitrostat] 0.4 mg SUBLINGUAL Q5M PRN 05/12/19 03/10/21 Omeprazole [PriLOSEC] 20 mg PO AC-BRKFST 05/12/19 03/10/21 Losartan [Cozaar] 50 mg PO DAILY 04/27/20 03/10/21 Allergies Allergy/AdvReac Type Severity Reaction Status Date / Time No Known Allergies Allergy Verified 03/10/21 16:16 Review of Systems ROS Statement: Those systems with pertinent positive or pertinent negative responses have been documented in the HPI. ROS Other: All systems not noted in ROS Statement are negative. Past Medical History Past Medical History: Coronary Artery Disease (CAD), Cancer, GERD/Reflux, Hyperlipidemia, Hypertension, Myocardial Infarction ([place]) Additional Past Medical History / Comment(s): Pt denies hx of [place] stating he had no heart damage but had blockage/vfib/cardiac arrest/stenting, gastritis, hiatal hernia, schatzki ring per past medical record, occasional dysphagia, diverticular disease, 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 Last Myocardial Infarction Date:: 2011 History of Any Multi-Drug Resistant Organisms: None Reported Past Surgical History: Heart Catheterization With Stent, Hernia Repair Additional Past Surgical History / Comment(s): EGD with unsuccessful dilation, colonosocpy, bilateral inguinal hernia surgery done twice each side, R orchiectomy d/t hydrocele, skin cancer removed from nose. Past Anesthesia/Blood Transfusion Reactions: No Reported Reaction, Motion Sickness Date of Last Stent Placement:: 2011 Past Psychological History: No Psychological Hx Reported Smoking Status: Former smoker Past Alcohol Use History: None Reported Past Drug Use History: None Reported - Past Family History Sister(s) Family Medical History: Cancer Mother Family Medical History: CVA/TIA, Hypertension Additional Family Medical History / Comment(s): Mother from a CVA at the age of 79yrs. Father Family Medical History: Respiratory Disorder Additional Family Medical History / Comment(s): Father worked in coal [employer]. He of black lung at the age of 55 yrs. General Exam - General Exam Comments Initial Comments: General: The patient is awake and alert, in no distress Eye: Pupils are equal, round and reactive to light, extra-ocular movements are intact. No nystagmus. There is normal conjunctiva bilaterally. No signs of icterus. Ears, nose, mouth and throat: There are moist mucous membranes and no oral lesions. Neck: The neck is supple, there is no tenderness or JVD. Cardiovascular: There is a regular rate and rhythm. No murmur, rub or gallop is appreciated. Respiratory: Lungs are clear to auscultation, respirations are non-labored, breath sounds are equal. No wheezes, stridor, rales, or rhonchi. Gastrointestinal: Soft, mild if any distended appearance, non-tender abdomen without masses or organomegaly noted. There is no rebound or guarding present. Musculoskeletal: Normal ROM, no tenderness. Strength 5/5. Sensation intact. Pulses equal bilaterally 2+. Neurological: A&O x 3. CN II-XII intact grossly, There are no obvious motor or sensory deficits. Coordination appears grossly intact. Speech is normal. Skin: Skin is warm and dry and no rashes or lesions are noted. Psychiatric: Cooperative, appropriate mood & affect, normal judgment. Limitations: no limitations Course Vital Signs 03/10/21 03/10/21 13:36 16:12 Temperature 98 F 97.8 F Pulse Rate 69 64 Respiratory 18 18 Rate Blood Pressure 144/79 147/77 O2 Sat by Pulse 95 95 Oximetry Medical Decision Making - Medical Decision Making Constipation, bloating. Mild epigastric pain. NO chest pain. EKG no acute koroma es. CT (-) for acute process. Pt is hyponatremia but appears to be symptomatic. Given the level of sodium Dr Anderson feels more comfortable with admission for IV fluids. Dr Woodall accepted admission. Pt agreeable to care plan. IV fluids initiated in the ER. - Lab Data Result diagrams: 03/10/21 14:30 03/10/21 14:30 Lab Results 03/10/21 03/10/21 03/10/21 Range/Units 14:30 14:30 14:30 WBC 6.0 (3.8-10.6) k/uL RBC 4.54 (4.30-5.90) m/uL Hgb 14.3 (13.0-17.5) gm/dL Hct 40.8 (39.0-53.0) % MCV 89.8 (80.0-100.0) fL MCH 31.6 (25.0-35.0) pg MCHC 35.2 (31.0-37.0) g/dL RDW 12.0 (11.5-15.5) % Plt Count 262 (150-450) k/uL MPV 7.4 Neutrophils % 69 % Lymphocytes % 19 % Monocytes % 8 % Eosinophils % 1 % Basophils % 1 % Neutrophils # 4.1 (1.3-7.7) k/uL Lymphocytes # 1.1 (1.0-4.8) k/uL Monocytes # 0.5 (0-1.0) k/uL Eosinophils # 0.0 (0-0.7) k/uL Basophils # 0.0 (0-0.2) k/uL Sodium 127 L (137-145) mmol/L Potassium 5.0 (3.5-5.1) mmol/L Chloride 95 L (98-107) mmol/L Carbon Dioxide 24 (22-30) mmol/L Anion Gap 8 mmol/L BUN 13 (9-20) mg/dL Creatinine 0.93 (0.66-1.25) mg/dL Est GFR (CKD-EPI)AfAm 86 (>60 ml/min/1.73 sqM) Est GFR (CKD-EPI)NonAf 74 (>60 ml/min/1.73 sqM) Glucose 108 H (74-99) mg/dL Calcium 9.4 (8.4-10.2) mg/dL Total Bilirubin 1.1 (0.2-1.3) mg/dL AST 29 (17-59) U/L ALT 14 (4-49) U/L Alkaline Phosphatase 71 (38-126) U/L Troponin I (0.000-0.034) ng/mL Total Protein 7.5 (6.3-8.2) g/dL Albumin 4.3 (3.5-5.0) g/dL Amylase 71 (30-110) U/L Lipase 150 (23-300) U/L Urine Color Light Yellow Urine Appearance Clear (Clear) Urine pH 7.0 (5.0-8.0) Ur Specific [place] 1.008 (1.001-1.035) Urine Protein Negative (Negative) Urine Glucose (UA) Negative (Negative) Urine Ketones Negative (Negative) Urine Blood Trace H (Negative) Urine Nitrite Negative (Negative) Urine Bilirubin Negative (Negative) Urine Urobilinogen <2.0 (<2.0) mg/dL Ur Leukocyte Esterase Negative (Negative) Urine RBC 1 (0-5) /hpf Ur Squamous Epith Cells <1 (0-4) /hpf Urine Mucus Rare H (None) /hpf 03/10/21 Range/Units 14:30 WBC (3.8-10.6) k/uL RBC (4.30-5.90) m/uL Hgb (13.0-17.5) gm/dL Hct (39.0-53.0) % MCV (80.0-100.0) fL MCH (25.0-35.0) pg MCHC (31.0-37.0) g/dL RDW (11.5-15.5) % Plt Count (150-450) k/uL MPV Neutrophils % % Lymphocytes % % Monocytes % % Eosinophils % % Basophils % % Neutrophils # (1.3-7.7) k/uL Lymphocytes # (1.0-4.8) k/uL Monocytes # (0-1.0) k/uL Eosinophils # (0-0.7) k/uL Basophils # (0-0.2) k/uL Sodium (137-145) mmol/L Potassium (3.5-5.1) mmol/L Chloride (98-107) mmol/L Carbon Dioxide (22-30) mmol/L Anion Gap mmol/L BUN (9-20) mg/dL Creatinine (0.66-1.25) mg/dL Est GFR (CKD-EPI)AfAm (>60 ml/min/1.73 sqM) Est GFR (CKD-EPI)NonAf (>60 ml/min/1.73 sqM) Glucose (74-99) mg/dL Calcium (8.4-10.2) mg/dL Total Bilirubin (0.2-1.3) mg/dL AST (17-59) U/L ALT (4-49) U/L Alkaline Phosphatase (38-126) U/L Troponin I <0.012 (0.000-0.034) ng/mL Total Protein (6.3-8.2) g/dL Albumin (3.5-5.0) g/dL Amylase (30-110) U/L Lipase (23-300) U/L Urine Color Urine Appearance (Clear) Urine pH (5.0-8.0) Ur Specific [place] (1.001-1.035) Urine Protein (Negative) Urine Glucose (UA) (Negative) Urine Ketones (Negative) Urine Blood (Negative) Urine Nitrite (Negative) Urine Bilirubin (Negative) Urine Urobilinogen (<2.0) mg/dL Ur Leukocyte Esterase (Negative) Urine RBC (0-5) /hpf Ur Squamous Epith Cells (0-4) /hpf Urine Mucus (None) /hpf - EKG Data EKG Comments: Ventricular rate 60 bpm, [place] interval 164 ms, QRS ration 86 ms the QT/QTC 424/424 ms. This is normal sinus nonspecific T-wave abnormality no ST elevation or depression is appreciated. Disposition Clinical Impression: Constipation, Hyponatremia Disposition: ADMITTED IP TO THIS HOSP Condition: Stable Is patient prescribed a controlled substance at d/c from ED?: No Referrals: Arleen Estevez DO [Primary Care Provider] - 1-2 days Time of Disposition: 16:30 Decision to Admit Reason: Admit from EC Decision Date: 03/10/21 Decision Time: 16:30
[2021-03-10 14:54] LABS: Albumin 4.3 g/dL (3.5-5.0); Calcium 9.4 mg/dL (8.4-10.2); Total Bilirubin 1.1 mg/dL (0.2-1.3); Total Protein 7.5 g/dL (6.3-8.2)
--- NOTE | 2021-03-10 16:07 | CT ---
EXAMINATION TYPE: CT abdomen pelvis w con DATE OF EXAM: 03/10/2021 COMPARISON: 04/28/2020 HISTORY: Epigastric discomfort, bloating. CT DLP: 1013.6 mGycm Automated exposure control for dose reduction was used. CONTRAST: Performed with IV Contrast, patient injected with 100 mL of Isovue 300. Images obtained from the diaphragm to the floor the pelvis with IV contrast. There is some interstitial infiltrate and subsegmental atelectasis at the lung bases. Heart size is n ormal. There is no pericardial effusion. There is hiatal hernia. There is 5 mm calcified granuloma ri ght posterior lung base. Liver spleen stomach pancreas gallbladder appear intact. Bile ducts are not dilated. There is no adrenal mass. Kidneys show satisfactory contrast opacification. There is no hydronephrosi s. The ureters are not dilated. Delayed images show normal renal excretion. There is no retroperitone al adenopathy. Abdominal aorta is atheromatous. There are numerous sigmoid diverticula. There are numerous diverticula of the remainder of the colon as well. Bladder distends smoothly. There is right inguinal hernia that contains mixed density. There is possible right-sided hydrocele or a high position of the right testicle. There is no mesenteric edema. There is no ascites or free air. I see no bowel obstruction. Appendix appears normal. 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 Unchanged. There is no compression fracture. The bony pelvis is intact. Hip joints are intact. There is no hip dysplasia . IMPRESSION: Extensive colonic diverticulosis without diverticulitis. Mild interstitial infiltrate and subsegmenta l atelectasis at the posterior lung bases appears new compared to old exam. Hiatal hernia unchanged.
[2021-03-10] MEDS ORDERED: NALOXONE 0.4 MG/ML 1 ML VIAL IV PRN (16:29)
[2021-03-10] MEDS: SODIUM CHLORIDE 0.9% 1,000 ML IV SCH (17:01)
[2021-03-10 18:09] LABS: Creatinine,Urine Random 47.7 mg/dL; Protein/Creatinine Ratio,Urine 0.273
[2021-03-10 21:16] VITALS: RESP 19
[2021-03-10] MEDS ORDERED: NITROGLYCERIN SL TABS 0.4 MG TAB SUBLINGUAL PRN (22:25)
[2021-03-10] MEDS ORDERED: ATORVASTATIN 20 MG TAB PO SCH (22:30)
[2021-03-10] MEDS: METOPROLOL TARTRATE 25 MG TAB PO SCH (22:47)
[2021-03-10] MEDS ORDERED: DOCUSATE 100 MG CAP PO PRN (23:57)
--- NOTE | 2021-03-11 00:04 | P.HPIM ---
History of Present Illness H&P Date: 03/10/21 Chief Complaint: Abdominal bloating Patient is a 85-year-old male with known history of hypertension, hyperlipidemia, coronary artery disease, history of stent placement, schatzki ring status post EGD with unsuccessful dilation and previous history of smoking presents to ER with complaints of abdominal bloating for the past 2 to 3 days. Patient states that he has been gaining weight recently and felt very much bloated in the abdomen. Denies any constipation. Patient did have bowel movement yesterday morning. Patient has been having issues with constipation. Denied any hematemesis or melena. No diarrhea. No nausea vomiting or abdominal pain. No chest pain or shortness of breath. He states he had same symptoms a year ago and they "found nothing but gastritis ". Patient has no additional complaints. Patient states that he drinks 6 to 8 cups of plain water daily. KUB x-ray showed nonspecific bowel gas pattern within ascending colon. No significant fecal retention evident. CT of the abdomen pelvis showed extensive colonic diverticulosis without diverticulitis. Mild interstitial infiltrate and subsegmental atelectasis at the posterior lung bases appears new compared to old exam. Hiatal hernia unchanged. EKG showed normal sinus rhythm Laboratory data showed WBC 6.0 hemoglobin 14.3 and platelets 262 Sodium 127 potassium 5.0 chloride 95 glucose 108 [id number] lipase 150 amylase 71 AST ALT alk phos 29, ALT 14, 71 Troponin x1 - Urinalysis is negative for infection COVID-19 PCR not detected Review of Systems Constitutional: Patient denies any fever or chills . No generalized weakness or weight loss. Abdomen: Patient denied nausea vomiting and diarrhea and abdominal pain.Patient does complain of abdominal bloating. Cardiovascular: Patient denies any chest pain or short of breath no palpitations. Respiratory: patient denied any cough or sputum production. No shortness of breath Neurologic: Patient denied any numbness or tingling headache. Musculoskeletal: Patient denies any complaints of joint swelling or deformity. Skin: Negative Psychiatric: Negative Endocrine: No heat or cold intolerance. No recent weight gain. Genitourinary: No dysuria or hematuria. All other 14 point ROS negative except the above Past Medical History Past Medical History: Coronary Artery Disease (CAD), Cancer, GERD/Reflux, Hyperlipidemia, Hypertension, Myocardial Infarction ([place]) Additional Past Medical History / Comment(s): Pt denies hx of [place] stating he had no heart damage but had blockage/vfib/cardiac arrest/stenting, gastritis, hiatal hernia, schatzki ring per past medical record, occasional dysphagia, diverticular disease, 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 Last Myocardial Infarction Date:: 2011 History of Any Multi-Drug Resistant Organisms: None Reported Past Surgical History: Heart Catheterization With Stent, Hernia Repair Additional Past Surgical History / Comment(s): EGD with unsuccessful dilation, colonosocpy, bilateral inguinal hernia surgery done twice each side, R orchiectomy d/t hydrocele, skin cancer removed from nose. Past Anesthesia/Blood Transfusion Reactions: No Reported Reaction, Motion Sickness Date of Last Stent Placement:: 2011 Past Psychological History: No Psychological Hx Reported Additional Psychological History / Comment(s): Pt resides alone. He is independent. Smoking Status: Former smoker Past Alcohol Use History: None Reported Additional Past Alcohol Use History / Comment(s): Pt started smoking in 1953 and quit in 1968 Past Drug Use History: None Reported - Past Family History Sister(s) Family Medical History: Cancer Mother Family Medical History: CVA/TIA, Hypertension Additional Family Medical History / Comment(s): Mother from a CVA at the age of 79yrs. Father Family Medical History: Respiratory Disorder Additional Family Medical History / Comment(s): Father worked in coal [employer]. He of black lung at the age of 55 yrs. Medications and Allergies Home Medications Medication Instructions Recorded Confirmed Type Aspirin 81 mg PO DAILY 03/27/15 03/10/21 History Simvastatin [Zocor] 40 mg PO HS 03/27/15 03/10/21 History Metoprolol Tartrate [Lopressor] 25 mg PO BID 04/11/18 03/10/21 History Nitroglycerin Sl Tabs [Nitrostat] 0.4 mg SUBLINGUAL Q5M PRN 05/12/19 03/10/21 History Omeprazole [PriLOSEC] 20 mg PO AC-BRKFST 05/12/19 03/10/21 History Losartan [Cozaar] 50 mg PO DAILY 04/27/20 03/10/21 History Allergies Allergy/AdvReac Type Severity Reaction Status Date / Time No Known Allergies Allergy Verified 03/10/21 16:16 Physical Exam Vitals: Vital Signs Temp Pulse Pulse Resp BP BP Pulse Ox 03/10/21 21:15 97.7 F 60 19 155/76 95 03/10/21 21:14 97.7 F 60 16 155/76 95 03/10/21 16:12 97.8 F 64 18 147/77 95 03/10/21 13:36 98 F 69 18 144/79 95 Intake and Output 03/10/21 03/10/21 03/11/21 14:59 22:59 06:59 Other: Weight 82.236 kg 82.236 kg PHYSICAL EXAMINATION: Patient is lying in the bed comfortably, no acute distress, awake alert and oriented.. HEENT: Normocephalic. Neck is supple. Pupils reactive. Nostrils clear. Oral cavity is moist. Ears reveal no drainage. Neck reveals no JVD, carotid bruits, or thyromegaly. CHEST EXAMINATION: Trachea is central. Symmetrical expansion. Lung lopez clear to auscultation and percussion. CARDIAC: Normal S1, S2 with no gallops. No murmurs ABDOMEN: Soft.mild distension, non tender, Bowel sounds normal. No organomegaly. No abdominal bruits. Extremities: reveal no edema. No clubbing or cyanosis Neurologically awake, alert, oriented x3 with well-coordinated movements. No focal deficits noted Skin: No rash or skin lesions. Psychiatric: Coperative. Nonsuicidal Musculoskeletal: No joint swelling or deformity. Normal range of motion. Results CBC & Chem 7: 03/10/21 14:30 03/10/21 14:30 Labs: Abnormal Lab Results - Last 24 Hours (Table) 03/10/21 03/10/21 03/10/21 Range/Units 14:30 14:30 14:30 Sodium 127 L (137-145) mmol/L Chloride 95 L (98-107) mmol/L Glucose 108 H (74-99) mg/dL Osmolality 266 L (280-301) mosm/kg Urine Blood Trace H (Negative) Urine Mucus Rare H (None) /hpf Thrombosis Risk Factor Assmnt - DVT/VTE Prophylaxis DVT/VTE Prophylaxis: Pharmacologic Prophylaxis ordered - Choose All That Apply Any of the Below Risk Factors Present?: Yes Each Factor Represents 1 point: Obesity (BMI >25) Other Risk Factors: Yes Each Risk Factor Represents 3 Points: Age 75 years or older Thrombosis Risk Factor Assessment Total Risk Factor Score: 4 Thrombosis Risk Factor Assessment Level: Moderate Risk Assessment and Plan Assessment: Hypoosmolar hyponatremia likely due to increased free water intake. Abdominal bloating sensation likely due to peptic ulcer disease/gastritis Extensive colonic diverticulosis without evidence of diverticulitis. Mild interstitial infiltrate and subsegmental atelectasis. Coronary disease history of stent placement History of schatzki ring with unsuccessful dilation. Occasional dysphagia GERD Hiatal hernia Hypertension Hyperlipidemia Previous history of smoking DVT prophylaxis with heparin subcu Plan: Patient will be continued IV hydration with normal saline and restrict free water to 2 L/day. Monitor sodium level. Urine sodium and protein creatinine was ordered. Cerebrovascular disease low. Continue with PPI and monitor for any dysphagia. Encourage incentive spirometry. PT OT and continue with home medications. Further recommendations based on the clinical course. Time with Patient: Greater than 30
[2021-03-11] MEDS: SODIUM CHLORIDE 0.9% 1,000 ML IV SCH (05:33)
[2021-03-11] MEDS ORDERED: PANTOPRAZOLE 40 MG TABLET PO SCH (07:30)
[2021-03-11] MEDS: METOPROLOL TARTRATE 25 MG TAB PO SCH (08:54)
[2021-03-11] MEDS ORDERED: ASPIRIN 81 MG PO SCH (09:00)
[2021-03-11] MEDS ORDERED: LOSARTAN 50 MG TAB PO SCH (09:00)
[2021-03-11 09:43] LABS: Basophils # (A) 0.04 X 10*3/uL (0.00-0.10); Basophils % (A) 0.7 %; Eosinophils # (A) 0.04 X 10*3/uL (0.04-0.35); Eosinophils % (A) 0.7 %; HCT 36.5 % (39.6-50.0); HGB 12.1 g/dL (13.0-17.0); Lymphocytes # (A) 1.58 X 10*3/uL (0.90-5.00); MCH 30.4 pg (27.0-32.0); MCHC 33.2 g/dL (32.0-37.0); MCV 91.7 fL (80.0-97.0); Mean Platelet Volume 10.6 fL (9.5-12.2); Monocytes # (A) 0.64 X 10*3/uL (0.20-1.00); Monocytes % (A) 11.8 %; Neutrophils # (A) 3.12 X 10*3/uL (1.80-7.70); Neutrophils % (A) 57.4 %; Platelet Count 233 X 10*3/uL (140-440); RBC 3.98 X 10*6/uL (4.40-5.60); RDW 11.9 % (11.5-14.5); WBC 5.44 X 10*3/uL (4.50-10.00)
[2021-03-11 10:28] LABS: African American GFR (CKD) 78.6 (60.0-200.0); Anion Gap 4.4 mmol/L (4.00-12.00); Calcium 8.8 mg/dL (8.7-10.3); Carbon Dioxide 26.6 mmol/L (21.6-31.8); Non-African American GFR(CKD) 67.8 (60.0-200.0); Potassium 4.4 mmol/L (3.5-5.5)
[2021-03-11 12:35] LABS: Glucose,Whole Blood 97 mg/dL (75-99)
--- NOTE | 2021-03-11 15:08 | FL ---
EXAMINATION TYPE: FL barium swallow DATE OF EXAM: 03/11/2021 COMPARISON: None HISTORY: Bloating, dysphagia TECHNIQUE: Double air contrast technique FINDINGS: Fluoroscopy time: 55 seconds. Images: 20 Esophagus dilates to normal caliber is normal contour to the gastroesophageal junction. Gastroesophag eal junction opens to normal caliber. A self reducing sliding type hiatal hernia is present. No suspi cious intraluminal or extramural defects are evident. In the horizontal drinking position, a secondary contraction with incomplete stripping of the esophag eal bolus was noted. Reflux was not identified. Under real-time observation, some mild persistence of the cricopharyngeus muscle may be present. IMPRESSION: 1. Mild presbyesophagus with secondary contraction and incomplete stripping of the esophageal bolus in the horizontal drinking position. 2. Mild persistent prominence of the cricopharyngeus muscle. 3. Hiatal hernia
[2021-03-11 16:14] VITALS: BP 122/60; PULSE 65; TEMP 97.5
== END 2021-03-11 16:51 | disposition home or self-care (01) ==
LOC: EC 13:27 → 6NMEDSUR 17:37
PROVIDERS: ADMIT Internal Medicine; ATTEND Internal Medicine
DX: E87.1 Hypo-osmolality and hyponatremia (principal); R14.0 Abdominal distension (gaseous); K59.00 Constipation, unspecified; K57.30 Diverticulosis of large intestine without perforation or abscess without bleeding; E78.5 Hyperlipidemia, unspecified; I10 Essential (primary) hypertension; I25.10 Atherosclerotic heart disease of native coronary artery without angina pectoris; K22.8 Other specified diseases of esophagus; K21.9 Gastro-esophageal reflux disease without esophagitis; K44.9 Diaphragmatic hernia without obstruction or gangrene; K22.2 Esophageal obstruction; R91.8 Other nonspecific abnormal finding of lung field; J98.11 Atelectasis; E66.9 Obesity, unspecified; Z20.822 Contact with and (suspected) exposure to COVID-19; Z68.27 Body mass index [BMI] 27.0-27.9, adult; Z79.82 Long term (current) use of aspirin; Z79.899 Other long term (current) drug therapy; I25.2 Old myocardial infarction; Z90.79 Acquired absence of other genital organ(s); Z85.820 Personal history of malignant melanoma of skin; Z95.5 Presence of coronary angioplasty implant and graft; Z87.19 Personal history of other diseases of the digestive system; Z86.74 Personal history of sudden cardiac arrest; Z98.890 Other specified postprocedural states; Z87.891 Personal history of nicotine dependence; Z80.9 Family history of malignant neoplasm, unspecified; Z82.3 Family history of stroke; Z82.49 Family history of ischemic heart disease and other diseases of the circulatory system; Z82.5 Family history of asthma and other chronic lower respiratory diseases
CPT/HCPCS: 96360; 96361; 99285; 36415; 93005; 84300; 83930; 82570; 80053; 80048; 84443; 84156; 82150; 83690; 84484; 85025 ×2; 81001; 87635; 74220; 74018; 74177; G0378 ×2; Q9967

== ENCOUNTER 2021-10-10 00:39 | Observation (INO) | payer MEDICARE ==
[2021-10-10] MEDS ORDERED: ASPIRIN 81 MG PO STA (01:08)
--- NOTE | 2021-10-10 01:24 | ED ---
General Adult HPI - General Chief complaint: Shortness of Breath Stated complaint: Chest Pain Time Seen by Provider: 10/10/21 00:56 Source: patient Mode of arrival: wheelchair Limitations: no limitations - History of Present Illness Initial comments: 86 year-old male patient presents to the emergency department for evaluation of abdominal bloating and chest pain. States that he started with pain in the midepigastric region that moved into his chest. States that he has one stent and his symptoms were similar to when he had that placed. States that he had enchiladas for dinner and afterwards became bloated and was unable to pass gas. States he took a gas X which did allow him to pass gas, but it did not relieve his pain. He states he has been having some exertional shortness of breath since being diagnosed with COVID on 09/30/21. States he had a very mild illness for about 6 days but he is now improved. Denies any nausea or vomiting. States he has a lot of nasal congestion and drainage in his throat since getting his vaccine in April. He denies any fever or chills. Denies significant cough. Denies any leg swelling or pain. - Related Data Home Medications Medication Instructions Recorded Confirmed Aspirin 81 mg PO DAILY 03/27/15 03/10/21 Simvastatin [Zocor] 40 mg PO HS 03/27/15 03/10/21 Metoprolol Tartrate [Lopressor] 25 mg PO BID 04/11/18 03/10/21 Nitroglycerin Sl Tabs [Nitrostat] 0.4 mg SUBLINGUAL Q5M PRN 05/12/19 03/10/21 Omeprazole [PriLOSEC] 20 mg PO AC-BRKFST 05/12/19 03/10/21 Losartan [Cozaar] 50 mg PO DAILY 04/27/20 03/10/21 Allergies Allergy/AdvReac Type Severity Reaction Status Date / Time No Known Allergies Allergy Verified 10/10/21 00:44 Review of Systems ROS Statement: Those systems with pertinent positive or pertinent negative responses have been documented in the HPI. ROS Other: All systems not noted in ROS Statement are negative. 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 Last Myocardial Infarction Date:: 2011 History of Any Multi-Drug Resistant Organisms: None Reported Past Surgical History: Heart Catheterization With Stent, Hernia Repair Additional Past Surgical History / Comment(s): EGD with unsuccessful dilation, colonosocpy, bilateral inguinal hernia surgery done twice each side, R orchiectomy d/t hydrocele, skin cancer removed from nose. Past Anesthesia/Blood Transfusion Reactions: No Reported Reaction, Motion Sickness Date of Last Stent Placement:: 2011 Past Psychological History: No Psychological Hx Reported Smoking Status: Former smoker Past Alcohol Use History: None Reported Past Drug Use History: None Reported - Past Family History Sister(s) Family Medical History: Cancer Mother Family Medical History: CVA/TIA, Hypertension Additional Family Medical History / Comment(s): Mother from a CVA at the age of 79yrs. Father Family Medical History: Respiratory Disorder Additional Family Medical History / Comment(s): Father worked in [employer]. He of black lung at the age of 55 yrs. General Exam Limitations: no limitations General appearance: alert, in no apparent distress, other (This is a well- developed, well-nourished adult male patient in no acute distress. ) ENT exam: Present: normal exam, normal oropharynx, mucous membranes moist Respiratory exam: Present: normal lung sounds bilaterally. Absent: respiratory distress, wheezes, rales, rhonchi, stridor Cardiovascular Exam: Present: regular rate, normal rhythm, normal heart sounds. Absent: systolic murmur, diastolic murmur, rubs, gallop, clicks GI/Abdominal exam: Present: soft, distended, normal bowel sounds. Absent: tenderness, guarding, rebound, rigid Neurological exam: Present: alert, oriented X3, CN II-XII intact Psychiatric exam: Present: normal affect, normal mood Skin exam: Present: warm, dry, intact, normal color. Absent: rash Course Vital Signs 10/10/21 10/10/21 00:40 03:46 Temperature 98.9 F Pulse Rate 82 77 Respiratory 20 18 Rate Blood Pressure 182/85 149/74 O2 Sat by Pulse 96 97 Oximetry EKG Findings - EKG Comments: EKG Findings:: EKG is obtained at 00 54 shows normal sinus rhythm with a ventricular rate of 84, NC interval 156, QRS duration 94, QT 368, QTC 434. There is mild ST elevation noted in aVR, V1 with mild depression noted in V4. Medical Decision Making - Medical Decision Making 86-year-old male patient presents to the emergency department today for evaluation of midepigastric and chest pain that started after eating dinner. Physical examination did reveal distended soft nontender abdomen. Lungs are clear to auscultation. Labs reviewed and did reveal normal troponin. Chest x-r ay negative. EKG did have some see elevations and depression. EKG was repeated this did seem to improve somewhat.. Was given a GI cocktail which did not resolve the symptoms at all. He will be admitted to the hospital for serial troponins due to history of coronary artery disease with one stent 12 years ago. Patient is agreeable with this plan. Case dicussed with my attending Dr. Levy. - Lab Data Result diagrams: 10/10/21 01:21 10/10/21 01:21 Lab Results 10/10/21 10/10/21 10/10/21 Range/Units 01:21 01:21 01:21 WBC 7.0 (3.8-10.6) k/uL RBC 4.20 L (4.30-5.90) m/uL Hgb 13.5 (13.0-17.5) gm/dL Hct 37.6 L (39.0-53.0) % MCV 89.6 (80.0-100.0) fL MCH 32.2 (25.0-35.0) pg MCHC 35.9 (31.0-37.0) g/dL RDW 12.9 (11.5-15.5) % Plt Count 315 (150-450) k/uL MPV 8.1 Neutrophils % 72 % Lymphocytes % 17 % Monocytes % 7 % Eosinophils % 2 % Basophils % 0 % Neutrophils # 5.0 (1.3-7.7) k/uL Lymphocytes # 1.2 (1.0-4.8) k/uL Monocytes # 0.5 (0-1.0) k/uL Eosinophils # 0.2 (0-0.7) k/uL Basophils # 0.0 (0-0.2) k/uL PT 10.2 (9.0-12.0) sec INR 0.9 (<1.2) APTT 23.9 (22.0-30.0) sec Sodium 132 L (137-145) mmol/L Potassium 4.5 (3.5-5.1) mmol/L Chloride 100 (98-107) mmol/L Carbon Dioxide 21 L (22-30) mmol/L Anion Gap 11 mmol/L BUN 14 (9-20) mg/dL Creatinine 0.91 (0.66-1.25) mg/dL Est GFR (CKD-EPI)AfAm 87 (>60 ml/min/1.73 sqM) Est GFR (CKD-EPI)NonAf 76 (>60 ml/min/1.73 sqM) Glucose 117 H (74-99) mg/dL Calcium 9.0 (8.4-10.2) mg/dL Magnesium 1.6 (1.6-2.3) mg/dL Total Bilirubin 0.5 (0.2-1.3) mg/dL AST 29 (17-59) U/L ALT 16 (4-49) U/L Alkaline Phosphatase 76 (38-126) U/L Troponin I (0.000-0.034) ng/mL NT-Pro-B Natriuret Pep pg/mL Total Protein 6.9 (6.3-8.2) g/dL Albumin 3.7 (3.5-5.0) g/dL Lipase 197 (23-300) U/L 10/10/21 10/10/21 Range/Units 01:21 01:21 WBC (3.8-10.6) k/uL RBC (4.30-5.90) m/uL Hgb (13.0-17.5) gm/dL Hct (39.0-53.0) % MCV (80.0-100.0) fL MCH (25.0-35.0) pg MCHC (31.0-37.0) g/dL RDW (11.5-15.5) % Plt Count (150-450) k/uL MPV Neutrophils % % Lymphocytes % % Monocytes % % Eosinophils % % Basophils % % Neutrophils # (1.3-7.7) k/uL Lymphocytes # (1.0-4.8) k/uL Monocytes # (0-1.0) k/uL Eosinophils # (0-0.7) k/uL Basophils # (0-0.2) k/uL PT (9.0-12.0) sec INR (<1.2) APTT (22.0-30.0) sec Sodium (137-145) mmol/L Potassium (3.5-5.1) mmol/L Chloride (98-107) mmol/L Carbon Dioxide (22-30) mmol/L Anion Gap mmol/L BUN (9-20) mg/dL Creatinine (0.66-1.25) mg/dL Est GFR (CKD-EPI)AfAm (>60 ml/min/1.73 sqM) Est GFR (CKD-EPI)NonAf (>60 ml/min/1.73 sqM) Glucose (74-99) mg/dL Calcium (8.4-10.2) mg/dL Magnesium (1.6-2.3) mg/dL Total Bilirubin (0.2-1.3) mg/dL AST (17-59) U/L ALT (4-49) U/L Alkaline Phosphatase (38-126) U/L Troponin I <0.012 (0.000-0.034) ng/mL NT-Pro-B Natriuret Pep 194 pg/mL Total Protein (6.3-8.2) g/dL Albumin (3.5-5.0) g/dL Lipase (23-300) U/L - EKG Data -: EKG Interpreted by Ut EKG Comments: EKG obtained at 02 54 shows normal sinus rhythm with a ventricular rate of 81, NC interval 162, QRS duration 94, QT 378, QTC 439. Significant change from prev ious. - Radiology Data Radiology results: report reviewed, image reviewed Two-view x-ray of the chest is obtained. Report was reviewed in its entirety. No active cardiopulmonary disease. Normal heart. No change. 2 views of the abdomen are obtained. Report was reviewed in its entirety. Impression by Dr. Swan shows nonacute abdomen. Disposition Clinical Impression: Chest pain Disposition: [facility] Condition: Serious Referrals: Arleen Estevez DO [Primary Care Provider] - 1-2 days Decision to Admit Reason: Admit from EC Decision Date: 10/10/21 Decision Time: 04:11
[2021-10-10 01:38] LABS: Basophils % (A) 0 %; Eosinophils # (A) 0.2 k/uL (0-0.7); Eosinophils % (A) 2 %; HCT 37.6 % (39.0-53.0); HGB 13.5 gm/dL (13.0-17.5); Lymphocytes # (A) 1.2 k/uL (1.0-4.8); Lymphocytes % (A) 17 %; MCH 32.2 pg (25.0-35.0); MCHC 35.9 g/dL (31.0-37.0); MCV 89.6 fL (80.0-100.0); Mean Platelet Volume 8.1; Monocytes # (A) 0.5 k/uL (0-1.0); Monocytes % (A) 7 %; Neutrophils % (A) 72 %; Platelet Count 315 k/uL (150-450); RDW 12.9 % (11.5-15.5)
--- NOTE | 2021-10-10 01:41 | XR ---
EXAMINATION TYPE: XR chest 2V DATE OF EXAM: 10/10/2021 COMPARISON: 03/12/2020 HISTORY: Chest pain TECHNIQUE: FINDINGS: Heart is normal. Lungs are clear of infiltrate. There are no hilar masses. Costophrenic ang les are clear. There are chest leads. Bony thorax is intact. IMPRESSION: No active cardiopulmonary disease. Normal heart. No change.
[2021-10-10 01:45] LABS: INR 0.9 (<1.2); Partial Thromboplastin Time 23.9 sec (22.0-30.0); Prothrombin Time 10.2 sec (9.0-12.0)
[2021-10-10 01:52] LABS: Albumin 3.7 g/dL (3.5-5.0); Magnesium 1.6 mg/dL (1.6-2.3); Total Bilirubin 0.5 mg/dL (0.2-1.3); Total Protein 6.9 g/dL (6.3-8.2)
[2021-10-10 02:00] LABS: Potassium 4.5 mmol/L (3.5-5.1)
[2021-10-10] MEDS ORDERED: MAG HYDROX/AL HYDROX/SIMETH 30 ML, HYOSCYAMINE ELIXIR 10 ML, LIDOCAINE VISCOUS 2% 10 ML PO STA ×3 (02:56)
--- NOTE | 2021-10-10 03:34 | XR ---
EXAMINATION TYPE: XR KUB DATE OF EXAM: 10/10/2021 COMPARISON: NONE HISTORY: Abdominal distention TECHNIQUE: 2 views FINDINGS: Bowel gas pattern is normal. There is no sign of intestinal obstruction or pneumoperitoneum . Fecal pattern is normal. Lung bases are clear. There are no pathologic calcifications. IMPRESSION: Nonacute abdomen.
[2021-10-10 03:49] VITALS: RESP 18
[2021-10-10] MEDS ORDERED: ONDANSETRON 4 MG/2 ML VIAL IVP PRN (04:10)
[2021-10-10] MEDS ORDERED: NALOXONE 0.4 MG/ML 1 ML VIAL IV PRN (04:10)
[2021-10-10] MEDS ORDERED: MORPHINE SULFATE 2 MG/ML SYRINGE IV PRN (04:10)
[2021-10-10 09:27] VITALS: BP 126/86; PULSE 60; TEMP 97.7
[2021-10-10] MEDS ORDERED: LOSARTAN 50 MG TAB PO SCH (09:30)
[2021-10-10] MEDS ORDERED: METOPROLOL TARTRATE 25 MG TAB PO SCH (09:30)
--- NOTE | 2021-10-10 10:07 | P.CRDCN ---
History of Present Illness History of present illness: HISTORY OF PRESENTING ILLNESS This is a pleasant 86-year-old male past medical history significant for coronary artery disease s/p PCI to proximal circumflex in 2012, hypertension, dyslipiemia. He follows in the office with Dr. Shah. We have been asked to see in consultation for chest pain. Patient is seen and examined in the emergency department. Patient presents to the emergency department with complaints of abdominal bloating and chest discomfort. Pain is in his mid epigastric region, non-exertional, aggravated by eating enchiladas last night for dinner. Describes it as a burning pain. It does radiate up his chest. After eating enchaladas last night he had bloating and unable to pass gas. He took gas X with some improvement. He states he has been having some exertional shortness of breath since being diagnosed with COVID on 09/30/21. States he had a very mild illness for about 6 days but he is now improved. He states he was concerned his pain was similar to when he had stents placed in 2011 and wanted to be further evaluated. He was given GI Cocktail in the ER and his symptoms have resolved. He denies palpitations, lower extremity edema, fatigue, weakness, lightheadedness, syncope, near syncope. Denies symptoms of orthopnea or PND. DIAGNOSTICS EKG reveals sinus rhythm, heart rate 81, no significant ST ST-T wave abnormalities. Echocardiogram 04/2020 revealed an EF 55%, mild tricuspid regurgitation, mild mitral regurgitation Lexiscan stress test 04/2020 negative Chest xray no acute cardiopulmonary process KBU non acute abdomen Laboratory reviewed, troponin negative 3, Covid 19 PCR positive, sodium 132, potassium 4.5, BUN 14, serum creatinine 0.9, magnesium 1.6, proBNP 192, lipase within normal limits,WBC 7.0, hemoglobin 13.5, platelets 3:15 Current home medications include simvastatin 40 mg nightly, metoprolol tartrate 25 mg twice a day, losartan 50 mg daily REVIEW OF SYSTEMS At the time of my exam: CONSTITUTIONAL: Denies fever or chills. CARDIOVASCULAR: +epigastric burning chest pain, shortness of breath, orthopnea, PND or palpitations. RESPIRATORY: Denies cough. GASTROINTESTINAL: Denies abdominal pain, diarrhea, constipation, nausea or vomit ing. MUSCULOSKELETAL: Denies myalgias. NEUROLOGIC: Denies numbness, tingling, headache or weakness. ENDOCRINE: Denies fatigue, weight change, polydipsia or polyurina. GENITOURINARY: Denies burning, hematuria or urgency with micturation. HEMATOLOGIC: Denies history of anemia or bleeding. PHYSICAL EXAMINATION Blood pressure 126/86, heart rate 60, afebrile, oxygen saturation greater than 92% on room air CONSTITUTIONAL: No apparent distress. HEENT: Head is normocephalic. Pupils are equal, round. Sclerae anicteric. Mucous membranes of the mouth are moist. No JVD. No carotid bruit. CHEST EXAMINATION: Lungs are diminished bilaterally to auscultation. HEART EXAMINATION: Regular rate and rhythm. S1, S2 heard. ABDOMEN: Soft, nontender. Positive bowel sounds. EXTREMITIES: no lower extremity edema SKIN: warm dry NEUROLOGIC EXAMINATION: Patient is awake, alert and oriented x3. ASSESSMENT Chest pain, atypical, acute coronary syndrome has been ruled out. Symptoms appear to be more GI related Covid-19 Infection Coronary artery disease s/p PCI to proximal circumflex in 2012 Hypertension Dyslipidemia PLAN An acute coronary event has been ruled out with no EKG evidence of ischemia and negative cardiac enzymes. Patient's epigastric pain appears to be more GI etiology. GI cocktail resolved patient's pain. Continue home cardiac medications From a cardiology perspective, no further workup at this time, Follow up with Dr. Shah as an outpatient. Continue home cardiac medications Thank you kindly for this consultation. Nurse Practitioner note has been reviewed, I agree with a documented findings and plan of care. Patient was seen and examined. 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 Last Myocardial Infarction Date:: 2011 History of Any Multi-Drug Resistant Organisms: None Reported Past Surgical History: Heart Catheterization With Stent, Hernia Repair Additional Past Surgical History / Comment(s): EGD with unsuccessful dilation, colonosocpy, bilateral inguinal hernia surgery done twice each side, R orchiectomy d/t hydrocele, skin cancer removed from nose. Past Anesthesia/Blood Transfusion Reactions: No Reported Reaction, Motion Sickness Date of Last Stent Placement:: 2011 Past Psychological History: No Psychological Hx Reported Smoking Status: Former smoker Past Alcohol Use History: None Reported Past Drug Use History: None Reported - Past Family History Sister(s) Family Medical History: Cancer Mother Family Medical History: CVA/TIA, Hypertension Additional Family Medical History / Comment(s): Mother from a CVA at the age of 79yrs. Father Family Medical History: Respiratory Disorder Additional Family Medical History / Comment(s): Father worked in [employer]. He of black lung at the age of 55 yrs. Medications and Allergies Home Medications Medication Instructions Recorded Confirmed Type Simvastatin [Zocor] 40 mg PO HS 03/27/15 10/10/21 History Metoprolol Tartrate [Lopressor] 25 mg PO BID 04/11/18 10/10/21 History Losartan [Cozaar] 50 mg PO DAILY 04/27/20 10/10/21 History Dm/Acetaminophen/Doxylamine [Vicks 1 - 2 cap PO Q6H PRN 10/10/21 10/10/21 History Nyquil Liquicaps] Oxymetazoline 0.05% Nasl [place] 2 spr EA NOSTRIL BID PRN 10/10/21 10/10/21 History [Afrin 0.05% Nasal [place]] Pantoprazole Sodium [Protonix] 40 mg PO DAILY 10/10/21 10/10/21 History Allergies Allergy/AdvReac Type Severity Reaction Status Date / Time No Known Allergies Allergy Verified 10/10/21 06:44 Physical Exam Vitals: Vital Signs Temp Pulse Resp BP Pulse Ox 10/10/21 03:46 77 18 149/74 97 10/10/21 00:40 98.9 F 82 20 182/85 96 Intake and Output 10/09/21 10/10/21 10/10/21 22:59 06:59 14:59 Other: Weight 77.111 kg Results 10/10/21 01:21 10/10/21 01:21 Cardiac Enzymes 10/10/21 10/10/21 10/10/21 Range/Units 01:21 01:21 05:06 AST 29 (17-59) U/L Troponin I <0.012 <0.012 (0.000-0.034) ng/mL Coagulation 10/10/21 Range/Units 01: PT 10.2 (9.0-12.0) sec APTT 23.9 (22.0-30.0) sec CBC 10/10/21 Range/Units 01:21 WBC 7.0 (3.8-10.6) k/uL RBC 4.20 L (4.30-5.90) m/uL Hgb 13.5 (13.0-17.5) gm/dL Hct 37.6 L (39.0-53.0) % Plt Count 315 (150-450) k/uL Comprehensive Metabolic Panel 10/10/21 Range/Units 01:21 Sodium 132 L (137-145) mmol/L Potassium 4.5 (3.5-5.1) mmol/L Chloride 100 (98-107) mmol/L Carbon Dioxide 21 L (22-30) mmol/L BUN 14 (9-20) mg/dL Creatinine 0.91 (0.66-1.25) mg/dL Glucose 117 H (74-99) mg/dL Calcium 9.0 (8.4-10.2) mg/dL AST 29 (17-59) U/L ALT 16 (4-49) U/L Alkaline Phosphatase 76 (38-126) U/L Total Protein 6.9 (6.3-8.2) g/dL Albumin 3.7 (3.5-5.0) g/dL Current Medications Generic Name Dose Route Start Last Admin Trade Name Freq PRN Reason Stop Dose Admin Morphine Sulfate 2 mg 10/10/21 04:10 10/10/21 04:44 Morphine Sulfate 2 Mg/Ml Syringe IV 2 mg Q4HR PRN Administration Severe Pain Naloxone HCl 0.2 mg 10/10/21 04:10 Naloxone 0.4 Mg/Ml 1 Ml Vial IV Q2M PRN Opioid Reversal Ondansetron HCl 4 mg 10/10/21 04:10 Ondansetron 4 Mg/2 Ml Vial IVP Q8HR PRN Nausea And Vomiting Intake and Output 10/09/21 10/10/21 10/10/21 22:59 06:59 14:59 Other: Weight 77.111 kg 10/10/21 01:21 10/10/21 01:21
[2021-10-10] MEDS: FAMOTIDINE 20 MG TAB PO SCH ×2 (10:17→10:18)
--- NOTE | 2021-10-10 11:55 | P.HPIM ---
History of Present Illness Patient is a pleasant 86-year-old male came in with comments of epigastric abdominal discomfort and chest pain. He is concerned that it may be related to his heart attack as patient had similar symptoms in the past. Patient's sympt oms improved with the GI cocktail. And the symptoms would worsen with the eating. He doesn't have any pain. Patient denied any shortness of breath lightheadedness diaphoresis patient denied any diarrhea. Patient is incidentally found to have positive COVID-19 PCR patient did get vaccinated. Although his family is not vaccinated. Patient did not have any acute ST-T wave changes patient had a negative stress test in month of April 2020 x-ray did not show any significant abnormality EKG did not show any acute ST-T wave changes troponins were negative. REVIEW OF SYSTEMS: CONSTITUTIONAL: No fever, no malaise, no fatigue. HEENT: No recent visual problems or hearing problems. Denied any sore throat. CARDIOVASCULAR: No orthopnea, PND, no palpitations, no syncope. PULMONARY: No shortness of breath, no cough, no hemoptysis. GASTROINTESTINAL: No diarrhea, no nausea, no vomiting, no abdominal pain. NEUROLOGICAL: No headaches, no weakness, no numbness. HEMATOLOGICAL: Denies any bleeding or petechiae. GENITOURINARY: Denies any burning micturition, frequency, or urgency. MUSCULOSKELETAL/RHEUMATOLOGICAL: Denies any joint pain, swelling, or any muscle pain. ENDOCRINE: Denies any polyuria or polydipsia. The rest of the 14-point review of systems is negative. PHYSICAL EXAMINATION: GENERAL: The patient is alert and oriented x3, not in any acute distress. Well developed, well nourished. HEENT: Pupils are round and equally reacting to light. EOMI. No scleral icterus. No conjunctival pallor. Normocephalic, atraumatic. No pharyngeal erythema. No thyromegaly. CARDIOVASCULAR: S1 and S2 present. No murmurs, rubs, or gallops. PULMONARY: Chest is clear to auscultation, no wheezing or crackles. ABDOMEN: Soft, nontender, nondistended, normoactive bowel sounds. No palpable organomegaly. MUSCULOSKELETAL: No joint swelling or deformity. EXTREMITIES: No cyanosis, clubbing, or pedal edema. NEUROLOGICAL: Gross neurological examination did not reveal any focal deficits. SKIN: No rashes. Assessment and plan Chest pain: Atypical appears to be secondary to gastroesophageal reflux disease patient will be discharged on 14 days of Protonix patient was a valid by cardiology and cleared by cardiology -COVID-19 infection patient is symptomatic at this time lateral require any medications patient was discharged on vitamin C vitamin D in the zinc -Coronary artery disease with history of PCI in the past -hypertension -Hyperlipidemia Past Medical History Past Medical History: Coronary Artery Disease (CAD), Cancer, GERD/Reflux, Hyperlipidemia, Hypertension, Myocardial Infarction ([place]) Additional Past Medical History / Comment(s): Pt denies hx of [place] stating he had no heart damage but had blockage/vfib/cardiac arrest/stenting, gastritis, hiatal hernia, schatzki ring per past medical record, occasional dysphagia, diverticular disease, 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 Last Myocardial Infarction Date:: 2011 History of Any Multi-Drug Resistant Organisms: None Reported Past Surgical History: Heart Catheterization With Stent, Hernia Repair Additional Past Surgical History / Comment(s): EGD with unsuccessful dilation, colonosocpy, bilateral inguinal hernia surgery done twice each side, R orchiectomy d/t hydrocele, skin cancer removed from nose. Past Anesthesia/Blood Transfusion Reactions: No Reported Reaction, Motion Sickness Date of Last Stent Placement:: 2011 Past Psychological History: No Psychological Hx Reported Smoking Status: Former smoker Past Alcohol Use History: None Reported Past Drug Use History: None Reported - Past Family History Sister(s) Family Medical History: Cancer Mother Family Medical History: CVA/TIA, Hypertension Additional Family Medical History / Comment(s): Mother from a CVA at the age of 79yrs. Father Family Medical History: Respiratory Disorder Additional Family Medical History / Comment(s): Father worked in [employer]. He of black lung at the age of 55 yrs. Medications and Allergies Home Medications Medication Instructions Recorded Confirmed Type Simvastatin [Zocor] 40 mg PO HS 03/27/15 10/10/21 History Metoprolol Tartrate [Lopressor] 25 mg PO BID 04/11/18 10/10/21 History Losartan [Cozaar] 50 mg PO DAILY 04/27/20 10/10/21 History Dm/Acetaminophen/Doxylamine [Vicks 1 - 2 cap PO Q6H PRN 10/10/21 10/10/21 History Nyquil Liquicaps] Oxymetazoline 0.05% Nasl [place] 2 spr EA NOSTRIL BID PRN 10/10/21 10/10/21 History [Afrin 0.05% Nasal [place]] Pantoprazole [Protonix] 40 mg PO DAILY #14 tab 10/10/21 Rx Allergies Allergy/AdvReac Type Severity Reaction Status Date / Time No Known Allergies Allergy Verified 10/10/21 06:44 Physical Exam Vitals: Vital Signs Temp Pulse Pulse Resp BP BP Pulse Ox 10/10/21 08:30 97.7 F 60 18 126/86 96 10/10/21 03:46 77 18 149/74 97 10/10/21 00:40 98.9 F 82 20 182/85 96 Intake and Output 10/09/21 10/10/21 10/10/21 22:59 06:59 14:59 Other: Weight 77.111 kg Results CBC & Chem 7: 10/10/21 01:21 10/10/21 01:21 Labs: Abnormal Lab Results - Last 24 Hours (Table) 10/10/21 10/10/21 10/10/21 Range/Units 01:21 01:21 04:44 RBC 4.20 L (4.30-5.90) m/uL Hct 37.6 L (39.0-53.0) % Sodium 132 L (137-145) mmol/L Carbon Dioxide 21 L (22-30) mmol/L Glucose 117 H (74-99) mg/dL Coronavirus (PCR) Detected A (Not Detectd)
[2021-10-10] MEDS ORDERED: ATORVASTATIN 20 MG TAB PO SCH (21:00)
[2021-10-11] MEDS ORDERED: ASPIRIN 81 MG PO SCH (09:00)
--- NOTE | 2021-10-16 07:08 | P.DS ---
Providers Date of admission: 10/10/21 04:05 Attending physician: Elieser Randolph Consults: 10/10/21 04:10 Consult Physician Routine Consulting Provider: Vivian Shah Consult Reason/Comments: Chest pain Do you want consulting provider notified?: Yes Primary care physician: Arleen Estevez Hospital Course: Patient was discharged on the same day as admission please refer to history and physical for further details of hospitalization and discharge. Patient Condition at Discharge: Serious Plan - Discharge Summary Discharge Rx Participant: No New Discharge Prescriptions: New Cholecalciferol [Vitamin D3 (25 Mcg = 1000 Iu)] 25 mcg PO DAILY #30 tab Pantoprazole [Protonix] 40 mg PO DAILY #14 tab Zinc Sulfate 220 mg PO DAILY #20 capsule Discontinued Pantoprazole Sodium [Protonix] 40 mg PO DAILY No Action Simvastatin [Zocor] 40 mg PO HS Metoprolol Tartrate [Lopressor] 25 mg PO BID Losartan [Cozaar] 50 mg PO DAILY Oxymetazoline 0.05% Nasl [place] [Afrin 0.05% Nasal [place]] 2 spr EA NOSTRIL BID PRN PRN Reason: Allergy Symptoms Dm/Acetaminophen/Doxylamine [Vicks Nyquil Liquicaps] 1 - 2 cap PO Q6H PRN PRN Reason: Cough Discharge Medication List Simvastatin [Zocor] 40 mg PO HS 03/27/15 [History] Metoprolol Tartrate [Lopressor] 25 mg PO BID 04/11/18 [History] Losartan [Cozaar] 50 mg PO DAILY 04/27/20 [History] Cholecalciferol [Vitamin D3 (25 Mcg = 1000 Iu)] 25 mcg PO DAILY #30 tab 10/10/21 [Rx] Dm/Acetaminophen/Doxylamine [Vicks Nyquil Liquicaps] 1 - 2 cap PO Q6H PRN 10/10/21 [History] Oxymetazoline 0.05% Nasl [place] [Afrin 0.05% Nasal [place]] 2 spr EA NOSTRIL BID PRN 10/10/21 [History] Pantoprazole [Protonix] 40 mg PO DAILY #14 tab 10/10/21 [Rx] Zinc Sulfate 220 mg PO DAILY #20 capsule 10/10/21 [Rx] Follow up Appointment(s)/Referral(s): Vivian Shah MD [STAFF PHYSICIAN] - 3 Weeks Arleen Estevez DO [Primary Care Provider] - 10/13/21 2:20 pm (video visit. what phone carrier do you have? call office with that info) Patient Instructions/Handouts: Coronavirus Disease 2019 (COVID-19) Discharge Disposition: HOME SELF-CARE
== END 2021-10-10 13:01 | disposition home or self-care (01) ==
LOC: EC 00:39 → 6NMEDSUR 04:05
PROVIDERS: ADMIT Hospitalist; ATTEND Hospitalist
DX: R07.89 Other chest pain (principal); U07.1 COVID-19; K21.9 Gastro-esophageal reflux disease without esophagitis; R14.0 Abdominal distension (gaseous); R10.13 Epigastric pain; I25.10 Atherosclerotic heart disease of native coronary artery without angina pectoris; I08.1 Rheumatic disorders of both mitral and tricuspid valves; I10 Essential (primary) hypertension; E78.5 Hyperlipidemia, unspecified; I25.2 Old myocardial infarction; K22.2 Esophageal obstruction; K44.9 Diaphragmatic hernia without obstruction or gangrene; K57.90 Diverticulosis of intestine, part unspecified, without perforation or abscess without bleeding; Z79.82 Long term (current) use of aspirin; Z79.899 Other long term (current) drug therapy; Z86.74 Personal history of sudden cardiac arrest; Z85.820 Personal history of malignant melanoma of skin; Z95.5 Presence of coronary angioplasty implant and graft; Z90.79 Acquired absence of other genital organ(s); Z98.890 Other specified postprocedural states; Z87.09 Personal history of other diseases of the respiratory system; Z86.79 Personal history of other diseases of the circulatory system; Z87.19 Personal history of other diseases of the digestive system; Z87.891 Personal history of nicotine dependence; Z82.3 Family history of stroke; Z82.49 Family history of ischemic heart disease and other diseases of the circulatory system; Z80.9 Family history of malignant neoplasm, unspecified
CPT/HCPCS: 96374; 99285; 36415; 93005; 83880; 80053; 83690; 83735; 84484; 85025; 85610; 85730; 87635; 71046; 74018; G0378; J2270